=== PATIENT | female | born 1965 | race Caucasian/White ===

== ENCOUNTER 2016-09-21 11:55 | Emergency (ER) | payer BC ==
[2016-09-21] MEDS ORDERED: ONDANSETRON 4 MG/2 ML VIAL IVP STA (12:22)
[2016-09-21] MEDS ORDERED: SODIUM CHLORIDE 0.9% 1,000 ML IV STA ×2 (12:22→13:19)
[2016-09-21] MEDS ORDERED: HYDROmorphone 1 MG/ML 1 ML SYRINGE IVP STA (12:22)
--- NOTE | 2016-09-21 12:27 | ED ---
Abdominal Pain HPI - General Chief Complaint: Abdominal Pain Stated Complaint: Abd pain Time Seen by Provider: 09/21/16 12:08 Source: patient Mode of arrival: ambulatory Limitations: no limitations - History of Present Illness Initial Comments: 51-year-old female presents with abdominal pain. States has a history diverticulitis began on Thursday with lower abdominal pain constant vomiting K keep anything down. Tender in the right and left. No urinary frequency urgency dysuria no burning on the urine. Some loose stools. No fever or chills. History of lupus has been on prolonged steroids and is on hydrocortisone. History of ablation for SVT 2 postmenopausal. - Related Data Home Medications Medication Instructions Recorded Confirmed Fludrocortisone Acetate 0.1 mg PO DAILY 04/07/16 09/21/16 Hydrocortisone 7.5 mg PO DAILY 04/07/16 09/21/16 Hydroxychloroquine Sulfate 200 mg PO DAILY 04/07/16 09/21/16 [Plaquenil] Meloxicam [Mobic] 7.5 mg PO DAILY PRN 04/07/16 09/21/16 Montelukast Sodium [Singulair] 10 mg PO HS 04/07/16 09/21/16 Omeprazole 20 mg PO BID 04/07/16 09/21/16 traMADol HCL [Ultram] 50 mg PO DAILY PRN 04/07/16 09/21/16 Ergocalciferol [Vitamin D2] 50,000 unit PO MO 09/21/16 09/21/16 Levalbuterol Tartrate [Xopenex Hfa 2 puff INHALATION RT-BID 09/21/16 09/21/16 Inhaler] Nadolol [Corgard] 20 mg PO DAILY 09/21/16 09/21/16 Topiramate [Topamax] 100 mg PO BID 09/21/16 09/21/16 Previous Rx's Medication Instructions Recorded Ondansetron Odt [Zofran Odt] 8 mg PO Q8HR PRN #6 tab 09/21/16 Allergies Allergy/AdvReac Type Severity Reaction Status Date / Time Iodinated Contrast Media - Allergy Anaphylaxis Verified 09/21/16 12:42 Oral and [Iodinated Contrast Media - IV Dye] Penicillins Allergy Rash/Hives Verified 09/21/16 12:42 shellfish derived [Shellfish] Allergy Unknown Verified 09/21/16 12:42 codeine AdvReac Nausea & Verified 09/21/16 12:42 Vomiting Review of Systems ROS Statement: Those systems with pertinent positive or pertinent negative responses have been documented in the HPI. ROS Other: All systems not noted in ROS Statement are negative. Constitutional: Denies: fever, chills Eyes: Denies: eye discharge ENT: Denies: ear pain Respiratory: Denies: cough Cardiovascular: Denies: chest pain Gastrointestinal: Reports: abdominal pain, nausea, vomiting Genitourinary: Denies: urgency, dysuria, frequency Musculoskeletal: Denies: back pain Skin: Denies: rash Neurological: Denies: headache Hematological/Lymphatic: Denies: easy bleeding, easy bruising Past Medical History Past Medical History: COPD, Hyperlipidemia, Syncope Additional Past Medical History / Comment(s): svt syncopal episodes, adrenal insufficiency, LUPUS History of Any Multi-Drug Resistant Organisms: None Reported Past Surgical History: Hernia Repair Additional Past Surgical History / Comment(s): cardiac ablations x 2 vocal cord surg, bronch with lung washings x 2 Past Psychological History: No Psychological Hx Reported Smoking Status: Never smoker Past Alcohol Use History: Rare Past Drug Use History: None Reported General Exam Limitations: no limitations General appearance: alert, in no apparent distress Head exam: Present: atraumatic Eye exam: Present: PERRL, EOMI ENT exam: Present: normal oropharynx, mucous membranes moist, TM's normal bilaterally Respiratory exam: Present: normal lung sounds bilaterally Cardiovascular Exam: Present: regular rate, tachycardia, normal heart sounds GI/Abdominal exam: Present: soft, tenderness (Right and left lower quadrant greater than the left no guarding) Neurological exam: Present: alert, CN II-XII intact Psychiatric exam: Present: normal affect, normal mood Skin exam: Present: warm, dry Course Vital Signs 09/21/16 09/21/16 12:02 12:46 Temperature 97.7 F 99.1 F Pulse Rate 124 H 84 Respiratory 20 18 Rate Blood Pressure 174/89 101/64 O2 Sat by Pulse 96 97 Oximetry Medical Decision Making - Medical Decision Making Dehydration is corrected no further vomiting white count is normal this most likely is a ruptured ovarian cyst With the diarrhea however and her symptoms that has been classic of her previous diverticulitis we'll treat for that as well. She may go home on clear liquids Zofran Tylenol for pain - Lab Data Result diagrams: 09/21/16 12:20 09/21/16 12:20 Lab Results 09/21/16 09/21/16 09/21/16 Range/Units 12:20 12:20 13:37 WBC 4.1 (3.8-10.6) k/uL RBC 4.36 (3.80-5.40) m/uL Hgb 13.7 (11.4-16.0) gm/dL Hct 41.5 (34.0-46.0) % MCV 95.1 (80.0-100.0) fL MCH 31.5 (25.0-35.0) pg MCHC 33.1 (31.0-37.0) g/dL RDW 13.5 (11.5-15.5) % Plt Count 179 (150-450) k/uL Neutrophils % 73 % Lymphocytes % 20 % Monocytes % 5 % Eosinophils % 0 % Basophils % 0 % Neutrophils # 3.0 (1.3-7.7) k/uL Lymphocytes # 0.8 L (1.0-4.8) k/uL Monocytes # 0.2 (0-1.0) k/uL Eosinophils # 0.0 (0-0.7) k/uL Basophils # 0.0 (0-0.2) k/uL Sodium 139 (137-145) mmol/L Potassium 3.4 L (3.5-5.1) mmol/L Chloride 108 H (98-107) mmol/L Carbon Dioxide 16 L (22-30) mmol/L Anion Gap 15 mmol/L BUN 14 (7-17) mg/dL Creatinine 1.05 H (0.52-1.04) mg/dL Est GFR (MDRD) Af Amer >60 (>60 ml/min/1.73 sqM) Est GFR (MDRD) Non-Af 55 (>60 ml/min/1.73 sqM) Glucose 103 H (74-99) mg/dL Calcium 9.7 (8.4-10.2) mg/dL Total Bilirubin 0.7 (0.2-1.3) mg/dL AST 20 (14-36) U/L ALT 34 (9-52) U/L Alkaline Phosphatase 68 (38-126) U/L Total Protein 6.7 (6.3-8.2) g/dL Albumin 4.1 (3.5-5.0) g/dL Amylase <30 L (30-110) U/L Lipase 46 (23-300) U/L Urine Color Yellow Urine Appearance Cloudy H (Clear) Urine pH 6.0 (5.0-8.0) Ur Specific [place] 1.012 (1.001-1.035) Urine Protein Trace H (Negative) Urine Glucose (UA) Negative (Negative) Urine Ketones 1+ H (Negative) Urine Blood Negative (Negative) Urine Nitrate Negative (Negative) Urine Bilirubin Negative (Negative) Urine Urobilinogen <2.0 (<2.0) mg/dL Ur Leukocyte Esterase Moderate H (Negative) Urine RBC 2 (0-5) /hpf Urine WBC 8 H (0-5) /hpf Ur Squamous Epith Cells <1 (0-4) /hpf Urine Bacteria Rare H (None) /hpf Hyaline Casts 58 H (0-2) /lpf Urine Mucus Occasional H (None) /hpf - Radiology Data Radiology results: report reviewed CT shows some free fluid no appendix R no overt diverticulitis. Disposition Clinical Impression: Dehydration, Abdominal pain Narrative: Diverticulitis versus ruptured ovarian cyst will need additional follow-up with [facility] and her surgeon or GI doctor will follow-up with Dr. Leeann Shah Disposition: HOME SELF-CARE Condition: Good Instructions: Abdominal Pain (ED) Prescriptions: Ondansetron Odt [Zofran Odt] 8 mg PO Q8HR PRN #6 tab PRN Reason: Nausea Referrals: Leeann Shah MD [Primary Care Provider] - 1-2 days Time of Disposition: 15:13
[2016-09-21 12:40] LABS: Basophils % (A) 0 %; CH 32.3; CHCM 34.1; Eosinophils % (A) 0 %; HCT 41.5 % (34.0-46.0); HDW 2.47; HGB 13.7 gm/dL (11.4-16.0); Luc # (Auto) 0.06; Luc % (Auto) 2; Lymphocytes # (A) 0.8 k/uL (1.0-4.8); Lymphocytes % (A) 20 %; MCH 31.5 pg (25.0-35.0); MCHC 33.1 g/dL (31.0-37.0); MCV 95.1 fL (80.0-100.0); Mean Platelet Volume 7.8; Monocytes # (A) 0.2 k/uL (0-1.0); Monocytes % (A) 5 %; Neutrophils % (A) 73 %; RBC 4.36 m/uL (3.80-5.40); RDW 13.5 % (11.5-15.5); WBC 4.1 k/uL (3.8-10.6); WBC (Perox) 4.28
[2016-09-21 12:49] LABS: ALT 34 U/L (9-52); AST 20 U/L (14-36); Alkaline Phosphatase 68 U/L (38-126); Amylase <30 U/L (30-110); Anion Gap 15 mmol/L; Blood Urea Nitrogen 14 mg/dL (7-17); Calcium 9.7 mg/dL (8.4-10.2); Carbon Dioxide 16 mmol/L (22-30); Chloride 108 mmol/L (98-107); Glucose 103 mg/dL (74-99); Non-African American GFR(MDRD) 55 (>60 ml/min/1.73 sqM); Potassium 3.4 mmol/L (3.5-5.1); Sodium 139 mmol/L (137-145); Total Bilirubin 0.7 mg/dL (0.2-1.3); Total Protein 6.7 g/dL (6.3-8.2)
[2016-09-21] MEDS ORDERED: HYDROCORTISONE SUCCINATE 100 MG/2 ML VIAL IV STA (13:19)
[2016-09-21] MEDS ORDERED: PANTOPRAZOLE 40 MG/10 ML VIAL IVP STA (13:19)
--- NOTE | 2016-09-21 13:36 | CT ---
EXAMINATION TYPE: CT abdomen pelvis wo con DATE OF EXAM: 09/21/2016 1:06 PM COMPARISON: NONE HISTORY: mid pelvic pain and RLQ pain, with nausea and vomiting CT DLP: 339.9 mGycm Automated exposure control for dose reduction was used. TECHNIQUE: Helical acquisition of images was performed from the lung bases through the pelvis. FINDINGS: Lung bases are clear. There is no pleural effusion. Liver spleen pancreas appear normal. Bile ducts a re not dilated. Gallbladder appears normal. There is no adrenal mass. Kidneys have normal size and contour. There is no hydronephrosis. There is no retroperitoneal adenopathy. There is no ascites. Bladder distends smoothly. There is no sign of a pelvic mass. Appendix is not definitely seen. There is no sign of appendicitis. There are a few diver ticula in the descending colon. I see no intestinal wall thickening. There are no dilated loops. Ther e is no sign of a bowel obstruction. There is a small amount of free fluid in the pelvis. I see no pe lvic mass. The uterus is anteverted. Bony structures are intact. IMPRESSION: THERE IS MILD FREE FLUID IN THE PELVIS. NO PELVIC MASS SEEN. APPENDIX IS NOT SEEN. THERE IS NO SIGN O F APPENDICITIS. THERE IS SOME COLONIC DIVERTICULOSIS WITHOUT EVIDENCE OF DIVERTICULITIS.
[2016-09-21 13:47] LABS: Appearance,Urine Cloudy (Clear); Bacteria,Urine Rare /hpf; Bilirubin,Urine Negative (Negative); Glucose,Urine (UA) Negative (Negative); Ketones,Urine 1+ (Negative); Leukocyte Esterase,Urine Moderate (Negative); Mucus,Urine Occasional /hpf; Nitrite,Urine Negative (Negative); Particle Count 5355; Protein,Urine Trace (Negative); RBC,Urine 2 /hpf (0-5); Specific Gravity,Urine 1.012 (1.001-1.035); Squamous Epithelial Cell,Urine <1 /hpf (0-4); UA Billing (MACRO vs. MICRO) MICRO; Urobilinogen,Urine <2.0 mg/dL (<2.0); WBC,Urine 8 /hpf (0-5)
[2016-09-21] MEDS ORDERED: KETOROLAC 30 MG/ML 1 ML VIAL IVP STA (13:58)
--- NOTE | 2016-09-21 15:27 | ED ---
Medical Decision Making - Lab Data Result diagrams: 09/21/16 12:20 09/21/16 12:20 Lab Results 09/21/16 09/21/16 09/21/16 Range/Units 12:20 12:20 13:37 WBC 4.1 (3.8-10.6) k/uL RBC 4.36 (3.80-5.40) m/uL Hgb 13.7 (11.4-16.0) gm/dL Hct 41.5 (34.0-46.0) % MCV 95.1 (80.0-100.0) fL MCH 31.5 (25.0-35.0) pg MCHC 33.1 (31.0-37.0) g/dL RDW 13.5 (11.5-15.5) % Plt Count 179 (150-450) k/uL Neutrophils % 73 % Lymphocytes % 20 % Monocytes % 5 % Eosinophils % 0 % Basophils % 0 % Neutrophils # 3.0 (1.3-7.7) k/uL Lymphocytes # 0.8 L (1.0-4.8) k/uL Monocytes # 0.2 (0-1.0) k/uL Eosinophils # 0.0 (0-0.7) k/uL Basophils # 0.0 (0-0.2) k/uL Sodium 139 (137-145) mmol/L Potassium 3.4 L (3.5-5.1) mmol/L Chloride 108 H (98-107) mmol/L Carbon Dioxide 16 L (22-30) mmol/L Anion Gap 15 mmol/L BUN 14 (7-17) mg/dL Creatinine 1.05 H (0.52-1.04) mg/dL Est GFR (MDRD) Af Amer >60 (>60 ml/min/1.73 sqM) Est GFR (MDRD) Non-Af 55 (>60 ml/min/1.73 sqM) Glucose 103 H (74-99) mg/dL Calcium 9.7 (8.4-10.2) mg/dL Total Bilirubin 0.7 (0.2-1.3) mg/dL AST 20 (14-36) U/L ALT 34 (9-52) U/L Alkaline Phosphatase 68 (38-126) U/L Total Protein 6.7 (6.3-8.2) g/dL Albumin 4.1 (3.5-5.0) g/dL Amylase <30 L (30-110) U/L Lipase 46 (23-300) U/L Urine Color Yellow Urine Appearance Cloudy H (Clear) Urine pH 6.0 (5.0-8.0) Ur Specific [place] 1.012 (1.001-1.035) Urine Protein Trace H (Negative) Urine Glucose (UA) Negative (Negative) Urine Ketones 1+ H (Negative) Urine Blood Negative (Negative) Urine Nitrate Negative (Negative) Urine Bilirubin Negative (Negative) Urine Urobilinogen <2.0 (<2.0) mg/dL Ur Leukocyte Esterase Moderate H (Negative) Urine RBC 2 (0-5) /hpf Urine WBC 8 H (0-5) /hpf Ur Squamous Epith Cells <1 (0-4) /hpf Urine Bacteria Rare H (None) /hpf Hyaline Casts 58 H (0-2) /lpf Urine Mucus Occasional H (None) /hpf Disposition Clinical Impression: Dehydration, Abdominal pain Disposition: HOME SELF-CARE Condition: Good Instructions: Abdominal Pain (ED) Prescriptions: Ciprofloxacin HCl [Cipro] 500 mg PO Q12HR #20 tablet Ondansetron Odt [Zofran Odt] 8 mg PO Q8HR PRN #6 tab PRN Reason: Nausea metroNIDAZOLE [Flagyl] 500 mg PO TID #21 tab traMADol HCl [Ultram] 50 mg PO Q6H PRN #20 tab PRN Reason: Pain Referrals: Leeann Shah MD [Primary Care Provider] - 1-2 days
[2016-09-21 15:30] VITALS: BP 111/66; PULSE 89; RESP 20; TEMP 98.2
== END 2016-09-21 15:30 | disposition home or self-care (01) ==
LOC: EC 11:55
DX: R10.30 Lower abdominal pain, unspecified (principal); E86.0 Dehydration; R11.2 Nausea with vomiting, unspecified; Z87.19 Personal history of other diseases of the digestive system; M32.9 Systemic lupus erythematosus, unspecified; J44.9 Chronic obstructive pulmonary disease, unspecified; E78.5 Hyperlipidemia, unspecified; Z79.1 Long term (current) use of non-steroidal anti-inflammatories (NSAID); Z79.52 Long term (current) use of systemic steroids; Z79.899 Other long term (current) drug therapy; Z91.041 Radiographic dye allergy status; Z88.0 Allergy status to penicillin
CPT/HCPCS: 36415; 80053; 82150; 83690; 85025; 81001; 87040; 87086; 74176; 99284; 96374; 96375 ×4; 96361 ×3; J1720; J2405; J1885; J1170; C9113

== ENCOUNTER → 2016-09-26 | Outpatient (CLI) | payer BC ==
--- NOTE | 2016-09-27 10:36 | NM ---
EXAMINATION TYPE: NM hepatobiliary w CCK DATE OF EXAM: 09/26/2016 5:33 PM COMPARISON: NONE INDICATION: Cholecystitis TECHNIQUE: After the intravenous administration of 4.92 mCi Tc 99m Mebrofenin hepatobiliary scintigra phy is performed. Images were obtained immediately post injection. FINDINGS: There is prompt uptake and excretion of radiotracer by the liver. Extrahepatic ducts are identified at 5 minutes. The gallbladder is visualized within 56 minutes. Small bowel activity is noted within 9 minutes. At one hour CCK was administered, patient was injected with 1.38 mcg of Kinevac, and gallbladder ejec tion fraction is calculated at 58 %, in the normal range. (Normal >35% and <80%.). IMPRESSION: Normal hepatobiliary scan.
== END | disposition home or self-care (01) ==
LOC: RADNMMAIN 14:57
PROVIDERS: ATTEND Surgery
DX: K81.9 Cholecystitis, unspecified (principal)
CPT/HCPCS: 78227; A9537; J2805

== ENCOUNTER 2016-09-30 10:29 | Day surgery (SDC) | payer BC ==
[2016-09-29 08:38] VITALS: BMI 26.2
[~2016-09-30 10:29] MED LIST: LACTATED RINGERS 1,000 ML IV SCH
[2016-09-30 10:52] VITALS: RESP 16; TEMP 98.2
[2016-09-30] MEDS ORDERED: LIDOCAINE 1% 20 ML VIAL (10MG/ML) FOR IV START INTRADERMA ONE (11:06)
[2016-09-30] MEDS ORDERED: PROPOFOL 10 MG/ML 20 ML VIAL IV ONE (11:46)
[2016-09-30] MEDS ORDERED: LIDOCAINE 1% INJ 10MG/ML (20 ML MDV) ONE (11:46)
[2016-09-30] MEDS ORDERED: GLYCOPYRROLATE 0.2 MG/ML 2 ML VIAL ONE (11:46)
--- NOTE | 2016-09-30 11:50 | P.GSHP ---
History of Present Illness H&P Date: 09/30/16 Chief Complaint: GERD, history of diverticulitis This is a 51-year-old female who presents today for EGD colonoscopy. Patient's had complaints of GERD and diverticulitis. Patient states that she does not feel well. She has complaints of pain left side of her abdomen is also epigastric pain. Past Medical History Past Medical History: COPD, Hyperlipidemia, Syncope Additional Past Medical History / Comment(s): svt syncopal episodes, adrenal insufficiency, LUPUS. POSSIBLE GALLBLADDER ISSUES. CHRONIC NAUSEA History of Any Multi-Drug Resistant Organisms: None Reported Past Surgical History: Hernia Repair Additional Past Surgical History / Comment(s): cardiac ablations x 2 vocal cord surg, bronch with lung washings x 2 Past Anesthesia/Blood Transfusion Reactions: Postoperative Nausea & Vomiting ( PONV) Additional Past Anesthesia/Blood Transfusion Reaction / Comment(s): WAKES UP CONFUSED Past Psychological History: No Psychological Hx Reported Smoking Status: Never smoker Past Alcohol Use History: Rare Past Drug Use History: None Reported - Past Family History Mother Family Medical History: Cancer Father Family Medical History: Cancer Brother(s) Family Medical History: Cancer Medications and Allergies Home Medications Medication Instructions Recorded Confirmed Type Fludrocortisone Acetate 0.1 mg PO DAILY 04/07/16 09/30/16 History Hydrocortisone 7.5 mg PO DAILY 04/07/16 09/30/16 History Hydroxychloroquine Sulfate 200 mg PO DAILY 04/07/16 09/30/16 History [Plaquenil] Meloxicam [Mobic] 7.5 mg PO DAILY PRN 04/07/16 09/30/16 History Montelukast Sodium [Singulair] 10 mg PO HS 04/07/16 09/30/16 History Omeprazole 20 mg PO BID 04/07/16 09/30/16 History traMADol HCL [Ultram] 50 mg PO DAILY PRN 04/07/16 09/30/16 History Ergocalciferol [Vitamin D2] 50,000 unit PO MO 09/21/16 09/30/16 History Levalbuterol Tartrate [Xopenex Hfa 2 puff INHALATION RT-BID 09/21/16 09/30/16 History Inhaler] Nadolol [Corgard] 20 mg PO DAILY 09/21/16 09/30/16 History Topiramate [Topamax] 100 mg PO BID 09/21/16 09/30/16 History Allergies Allergy/AdvReac Type Severity Reaction Status Date / Time Iodinated Contrast Media - Allergy Anaphylaxis Verified 09/30/16 10:52 Oral and [Iodinated Contrast Media - IV Dye] Penicillins Allergy Rash/Hives Verified 09/30/16 10:52 shellfish derived [Shellfish] Allergy Unknown Verified 09/30/16 10:52 codeine AdvReac Nausea & Verified 09/30/16 10:52 Vomiting Surgical - Exam Vital Signs Temp Pulse Resp BP Pulse Ox 98.2 F 93 16 102/61 98 09/30/16 10:47 09/30/16 10:47 09/30/16 10:47 09/30/16 10:47 09/30/16 10:47 - General well developed, no distress - Eyes PERRL - ENT normal pinna - Neck no masses - Respiratory normal expansion - Cardiovascular Rhythm: regular - Abdomen Mild tenderness throughout abdomen. There is no rebound or guarding. Abdomen: soft Assessment and Plan Plan: GERD. We'll perform EGD. Abdominal pain, history of diverticulitis perform EGD colonoscopy.
--- NOTE | 2016-09-30 12:13 | P.OP ---
Date of Procedure: 09/30/16 Preoperative Diagnosis: Abdominal pain GERD Diverticulosis Postoperative Diagnosis: Antral gastritis Small hiatal hernia Mild esophagitis Diverticulosis Procedure(s) Performed: EGD Colonoscopy Anesthesia: MAC Surgeon: Abdias Mei Pathology: other (Antrum, esophagus) Disposition: PACU Description of Procedure: Patient's placed on the endoscopy table in the lateral position. She received IV sedation. The gastroscope some placed oropharynx passed into the esophagus and into the stomach. Scope was then placed through the pylorus and the first and second portion of the duodenum was examined. There is no evidence of any inflammation of duodenum. Scope was then brought back the antrum and there was inflammation seen. Patient had gastritis in this area is biopsied. Scope was unretroflexed and the remainder of the stomach appeared normal. There was a small hiatal hernia. The distal esophagus. Inflamed and a biopsies performed. The proximal esophagus. Normal. Scope was withdrawn for patient. Next digital rectal exam was performed which revealed no abnormalities. Flexible colonoscope was then placed patient anus and passed throughout the entire colon. The ileocecal valve was visualized. The cecum, ascending, transverse colon appeared normal. In the descending and sigmoid colon there was mild diverticular changes. There is no evidence of diverticulitis. Scope was then brought back the rectum and this appeared normal. Scope was withdrawn for patient.
[2016-09-30 12:36] VITALS: BP 105/68; PULSE 86
== END 2016-09-30 13:30 | disposition home or self-care (01) ==
LOC: ORWHC2ENDO 10:29
PROVIDERS: ATTEND Surgery
DX: K29.50 Unspecified chronic gastritis without bleeding (principal); K20.9 Esophagitis, unspecified; K44.9 Diaphragmatic hernia without obstruction or gangrene; K57.90 Diverticulosis of intestine, part unspecified, without perforation or abscess without bleeding; J44.9 Chronic obstructive pulmonary disease, unspecified; E78.5 Hyperlipidemia, unspecified; I49.9 Cardiac arrhythmia, unspecified; M32.9 Systemic lupus erythematosus, unspecified; Z79.52 Long term (current) use of systemic steroids; Z79.899 Other long term (current) drug therapy; Z91.041 Radiographic dye allergy status; Z88.0 Allergy status to penicillin; Z91.013 Allergy to seafood
CPT/HCPCS: 81025; 88305; 88342; 45378; 43239; J2001; J2704; 99153

== ENCOUNTER 2017-07-05 03:04 | Observation (INO) | payer BC ==
[2017-07-05] MEDS ORDERED: SODIUM CHLORIDE 0.9% 1,000 ML IV STA (03:28)
[2017-07-05] MEDS ORDERED: ONDANSETRON 4 MG/2 ML VIAL IVP STA (03:28)
[2017-07-05] MEDS ORDERED: KETOROLAC 30 MG/ML 1 ML VIAL IVP STA (03:28)
--- NOTE | 2017-07-05 03:29 | ED ---
General Adult HPI - General Source: patient, RN notes reviewed Mode of arrival: ambulatory Limitations: no limitations <Angela Velazco - Last Filed: 07/05/17 03:55> <Luis Wills - Last Filed: 07/05/17 05:11> - General Chief complaint: Back Pain/Injury Stated complaint: Back Pain/Abdominal Pain Time Seen by Provider: 07/05/17 03:18 - History of Present Illness Initial comments: 52-year-old female presents emergency department with a chief complaint of left- sided flank pain. Patient states she just felt off. She's had some difficulty urinating. She's had some nausea and some fevers. Patient states that then today she developed this left-sided back pain that she's never had before. Patient denies any blood in the urine. Patient is to history of diverticulitis but states this feels very different. She does admit to history of adrenal insufficiency. Patient was concerned due to her symptoms so she thought that she should be evaluated.Patient denies any recent fever, chills, shortness of breath, chest pain, vomiting, numbness or tingling, dysuria or hematuria, constipation or diarrhea, headaches or visual changes, or any other current symptoms. (Angela Velazco) - Related Data Home Medications Medication Instructions Recorded Confirmed Fludrocortisone Acetate 0.1 mg PO DAILY 04/07/16 09/30/16 Hydrocortisone 7.5 mg PO DAILY 04/07/16 09/30/16 Hydroxychloroquine Sulfate 200 mg PO DAILY 04/07/16 09/30/16 [Plaquenil] Meloxicam [Mobic] 7.5 mg PO DAILY PRN 04/07/16 09/30/16 Montelukast Sodium [Singulair] 10 mg PO HS 04/07/16 09/30/16 Omeprazole 20 mg PO BID 04/07/16 09/30/16 traMADol HCL [Ultram] 50 mg PO DAILY PRN 04/07/16 09/30/16 Ergocalciferol [Vitamin D2] 50,000 unit PO MO 09/21/16 09/30/16 Levalbuterol Tartrate [Xopenex Hfa 2 puff INHALATION RT-BID 09/21/16 09/30/16 Inhaler] Nadolol [Corgard] 20 mg PO DAILY 09/21/16 09/30/16 Topiramate [Topamax] 100 mg PO BID 09/21/16 09/30/16 Previous Rx's Medication Instructions Recorded Ciprofloxacin HCl [Cipro] 500 mg PO Q12HR #20 tablet 09/21/16 Ondansetron Odt [Zofran Odt] 8 mg PO Q8HR PRN #6 tab 09/21/16 metroNIDAZOLE [Flagyl] 500 mg PO TID #21 tab 09/21/16 traMADol HCl [Ultram] 50 mg PO Q6H PRN #20 tab 09/21/16 Omeprazole 40 mg PO DAILY #90 capsule. 09/30/16 Allergies Allergy/AdvReac Type Severity Reaction Status Date / Time Iodinated Contrast- Oral and Allergy Anaphylaxis Verified 07/05/17 03:16 IV Dye [Iodinated Contrast Media - IV Dye] Penicillins Allergy Rash/Hives Verified 07/05/17 03:16 shellfish derived [Shellfish] Allergy Unknown Verified 07/05/17 03:16 codeine AdvReac Nausea & Verified 07/05/17 03:16 Vomiting Review of Systems ROS Other: All systems not noted in ROS Statement are negative. <Angela Velazco - Last Filed: 07/05/17 03:55> ROS Other: All systems not noted in ROS Statement are negative. <Luis Wills - Last Filed: 07/05/17 05:11> ROS Statement: Those systems with pertinent positive or pertinent negative responses have been documented in the HPI. Past Medical History Past Medical History: COPD, Hyperlipidemia, Syncope Additional Past Medical History / Comment(s): svt syncopal episodes, adrenal insufficiency, LUPUS. POSSIBLE GALLBLADDER ISSUES. CHRONIC NAUSEA History of Any Multi-Drug Resistant Organisms: None Reported Past Surgical History: Hernia Repair Additional Past Surgical History / Comment(s): cardiac ablations x 2 vocal cord surg, bronch with lung washings x 2 Past Anesthesia/Blood Transfusion Reactions: Postoperative Nausea & Vomiting ( PONV) Additional Past Anesthesia/Blood Transfusion Reaction / Comment(s): WAKES UP CONFUSED Past Psychological History: No Psychological Hx Reported Smoking Status: Never smoker Past Alcohol Use History: Rare Past Drug Use History: None Reported - Past Family History Mother Family Medical History: Cancer Father Family Medical History: Cancer Brother(s) Family Medical History: Cancer <Angela Velazco - Last Filed: 07/05/17 03:55> General Exam Limitations: no limitations <Angela Velazco - Last Filed: 07/05/17 03:55> <Luis Wills - Last Filed: 07/05/17 05:11> - General Exam Comments Initial Comments: General: The patient is awake and alert, in no distress, and does not appear acutely ill. Eye: Pupils are equal, round and reactive to light, extra-ocular movements are intact; there is normal conjunctiva bilaterally. No signs of icterus. Ears, nose, mouth and throat: There are moist mucous membranes and no oral lesions. Neck: The neck is supple, there is no tenderness. Cardiovascular: There is a regular rate and rhythm. No murmur, rub or gallop is appreciated. Respiratory: Lungs are clear to auscultation, respirations are non-labored, breath sounds are equal. No wheezes, stridor, rales, or rhonchi. Gastrointestinal: Soft, non-distended, non-tender abdomen without masses or organomegaly noted. There is no rebound or guarding present. Left sided CVA tenderness. Bowel sounds are unremarkable. Back: There is no tenderness to palpation in the midline. There is no obvious deformity. No rashes noted. Musculoskeletal: Normal ROM, no tenderness, There is no pedal edema. There is no calf tenderness or swelling. Sensation intact. Pulses equal bilaterally 2+. Neurological: CN II-XII intact, There are no obvious motor or sensory deficits. Coordination appears grossly intact. Speech is normal. Skin: Skin is warm and dry and no rashes or lesions are noted. Psychiatric: Cooperative, appropriate mood & affect, normal judgment. (Angela Velazco) Course <Angela Velazco - Last Filed: 07/05/17 03:55> <Luis Wills - Last Filed: 07/05/17 05:11> Vital Signs 07/05/17 07/05/17 03:13 04:41 Temperature 97.5 F L 98.6 F Pulse Rate 73 66 Respiratory 16 18 Rate Blood Pressure 100/66 108/61 O2 Sat by Pulse 100 99 Oximetry - Reevaluation(s) Reevaluation #1: 07/05/17 03:55 THis case will be signed out to Dr. Wills. (Angela Velazco) Medical Decision Making <Angela Velazco - Last Filed: 07/05/17 03:55> - Lab Data Result diagrams: 07/05/17 03:54 07/05/17 03:54 - Radiology Data Radiology results: report reviewed (Computed tomography scan abdomen pelvis shows no acute findings.) <Luis Wills - Last Filed: 07/05/17 05:11> - Medical Decision Making 52-year-old female presents for left-sided flank pain. (Angela Velazco) Patient reexamined and resting comfortably in bed. Abdomen soft and nontender. Mild tenderness left lower lumbar lateral region. Patient states she's been vomiting for 5 times daily for the last couple of days and already used her Cortef injection. Patient and family are updated on results and plan. Secondary to nausea vomiting with adrenal insufficiency patient will be admitted. Case discussed with practitioner Elsi, who will admit for Dr. Foster , covering for Dr. Leeann Ruiz. (Luis Wills) - Lab Data Lab Results 07/05/17 07/05/17 07/05/17 Range/Units 03:54 03:54 03:54 WBC 3.7 L (3.8-10.6) k/uL RBC 3.97 (3.80-5.40) m/uL Hgb 12.2 (11.4-16.0) gm/dL Hct 37.4 (34.0-46.0) % MCV 94.2 (80.0-100.0) fL MCH 30.7 (25.0-35.0) pg MCHC 32.6 (31.0-37.0) g/dL RDW 14.0 (11.5-15.5) % Plt Count 186 (150-450) k/uL Neutrophils % 41 % Lymphocytes % 46 % Monocytes % 8 % Eosinophils % 3 % Basophils % 1 % Neutrophils # 1.5 (1.3-7.7) k/uL Lymphocytes # 1.7 (1.0-4.8) k/uL Monocytes # 0.3 (0-1.0) k/uL Eosinophils # 0.1 (0-0.7) k/uL Basophils # 0.0 (0-0.2) k/uL PT (9.0-12.0) sec INR (<1.2) APTT (22.0-30.0) sec Sodium 138 (137-145) mmol/L Potassium 4.0 (3.5-5.1) mmol/L Chloride 109 H (98-107) mmol/L Carbon Dioxide 17 L (22-30) mmol/L Anion Gap 12 mmol/L BUN 5 L (7-17) mg/dL Creatinine 0.70 (0.52-1.04) mg/dL Est GFR (MDRD) Af Amer >60 (>60 ml/min/1.73 sqM) Est GFR (MDRD) Non-Af >60 (>60 ml/min/1.73 sqM) Glucose 85 (74-99) mg/dL Plasma Lactic Acid Saúl 0.9 (0.7-2.0) mmol/L Calcium 9.8 (8.4-10.2) mg/dL Total Bilirubin 0.3 (0.2-1.3) mg/dL AST 18 (14-36) U/L ALT 28 (9-52) U/L Alkaline Phosphatase 56 (38-126) U/L Total Protein 6.3 (6.3-8.2) g/dL Albumin 3.8 (3.5-5.0) g/dL Amylase 37 (30-110) U/L Lipase 107 (23-300) U/L Urine Color Urine Appearance (Clear) Urine pH (5.0-8.0) Ur Specific [place] (1.001-1.035) Urine Protein (Negative) Urine Glucose (UA) (Negative) Urine Ketones (Negative) Urine Blood (Negative) Urine Nitrite (Negative) Urine Bilirubin (Negative) Urine Urobilinogen (<2.0) mg/dL Ur Leukocyte Esterase (Negative) Urine RBC (0-5) /hpf Urine WBC (0-5) /hpf Ur Squamous Epith Cells (0-4) /hpf Urine Mucus (None) /hpf 07/05/17 07/05/17 Range/Units 03:54 03:54 WBC (3.8-10.6) k/uL RBC (3.80-5.40) m/uL Hgb (11.4-16.0) gm/dL Hct (34.0-46.0) % MCV (80.0-100.0) fL MCH (25.0-35.0) pg MCHC (31.0-37.0) g/dL RDW (11.5-15.5) % Plt Count (150-450) k/uL Neutrophils % % Lymphocytes % % Monocytes % % Eosinophils % % Basophils % % Neutrophils # (1.3-7.7) k/uL Lymphocytes # (1.0-4.8) k/uL Monocytes # (0-1.0) k/uL Eosinophils # (0-0.7) k/uL Basophils # (0-0.2) k/uL PT 10.5 (9.0-12.0) sec INR 1.0 (<1.2) APTT 23.2 (22.0-30.0) sec Sodium (137-145) mmol/L Potassium (3.5-5.1) mmol/L Chloride (98-107) mmol/L Carbon Dioxide (22-30) mmol/L Anion Gap mmol/L BUN (7-17) mg/dL Creatinine (0.52-1.04) mg/dL Est GFR (MDRD) Af Amer (>60 ml/min/1.73 sqM) Est GFR (MDRD) Non-Af (>60 ml/min/1.73 sqM) Glucose (74-99) mg/dL Plasma Lactic Acid Saúl (0.7-2.0) mmol/L Calcium (8.4-10.2) mg/dL Total Bilirubin (0.2-1.3) mg/dL AST (14-36) U/L ALT (9-52) U/L Alkaline Phosphatase (38-126) U/L Total Protein (6.3-8.2) g/dL Albumin (3.5-5.0) g/dL Amylase (30-110) U/L Lipase (23-300) U/L Urine Color Light Yellow Urine Appearance Clear (Clear) Urine pH 7.0 (5.0-8.0) Ur Specific [place] 1.005 (1.001-1.035) Urine Protein Negative (Negative) Urine Glucose (UA) Negative (Negative) Urine Ketones Negative (Negative) Urine Blood Negative (Negative) Urine Nitrite Negative (Negative) Urine Bilirubin Negative (Negative) Urine Urobilinogen <2.0 (<2.0) mg/dL Ur Leukocyte Esterase Trace H (Negative) Urine RBC 1 (0-5) /hpf Urine WBC 2 (0-5) /hpf Ur Squamous Epith Cells <1 (0-4) /hpf Urine Mucus Rare H (None) /hpf Disposition <Angela Velazco - Last Filed: 07/05/17 03:55> Decision Time: 05:11 <Luis Wills - Last Filed: 07/05/17 05:11> Clinical Impression: Nausea and vomiting, Adrenal insufficiency Disposition: ADMITTED IP TO THIS HOSP Referrals: Leeann Shah MD [Primary Care Provider] - 1-2 days
--- NOTE | 2017-07-05 04:10 | CT ---
EXAM: CT Abdomen and Pelvis Without Intravenous Contrast CLINICAL HISTORY: Reason: Pain TECHNIQUE: Axial computed tomography images of the abdomen and pelvis without intravenous contrast. DLP is 301.60 mGy-cm. This CT exam was performed using one or more of the following dose reduction techniques: automated exposure control, adjustment of the mA and/or kV according to patient size, and/or use of iterative reconstruction technique. COMPARISON: 09/21/16 FINDINGS: Liver, gallbladder, spleen, pancreas, and both adrenal glands are normal. Both kidneys are unremarkable without evidence of hydronephrosis or renal calculus. The urinary bladder is normal. No free fluid or free air. Stool throughout the colon. Appendix is not seen; however, there is no evidence of right lower quadrant inflammation to suggest appendicitis. Scattered diverticula noted in the descending and sigmoid colon without evidence of active inflammation. No evidence of small bowel dilatation. Osseous structures are intact. IMPRESSION: No acute intra-abdominal or intrapelvic process. No signs of appendicitis. Colonic diverticulosis redemonstrated without active inflammation.
[2017-07-05 04:21] LABS: Basophils % (A) 1 %; Eosinophils # (A) 0.1 k/uL (0-0.7); Eosinophils % (A) 3 %; HCT 37.4 % (34.0-46.0); HDW 2.31; HGB 12.2 gm/dL (11.4-16.0); Luc # (Auto) 0.07; Luc % (Auto) 2; Lymphocytes # (A) 1.7 k/uL (1.0-4.8); Lymphocytes % (A) 46 %; MCH 30.7 pg (25.0-35.0); MCHC 32.6 g/dL (31.0-37.0); MCV 94.2 fL (80.0-100.0); Mean Platelet Volume 7.6; Monocytes # (A) 0.3 k/uL (0-1.0); Monocytes % (A) 8 %; Neutrophils # (A) 1.5 k/uL (1.3-7.7); Neutrophils % (A) 41 %; RBC 3.97 m/uL (3.80-5.40); WBC 3.7 k/uL (3.8-10.6); WBC (Perox) 3.79
[2017-07-05 04:26] LABS: Appearance,Urine Clear (Clear); Bilirubin,Urine Negative (Negative); Glucose,Urine (UA) Negative (Negative); Ketones,Urine Negative (Negative); Leukocyte Esterase,Urine Trace (Negative); Mucus,Urine Rare /hpf; Nitrite,Urine Negative (Negative); Particle Count 704; Protein,Urine Negative (Negative); RBC,Urine 1 /hpf (0-5); Specific Gravity,Urine 1.005 (1.001-1.035); Squamous Epithelial Cell,Urine <1 /hpf (0-4); UA Billing (MACRO vs. MICRO) MICRO; Urobilinogen,Urine <2.0 mg/dL (<2.0); WBC,Urine 2 /hpf (0-5)
[2017-07-05 04:28] LABS: ALT 28 U/L (9-52); AST 18 U/L (14-36); Alkaline Phosphatase 56 U/L (38-126); Amylase 37 U/L (30-110); Blood Urea Nitrogen 5 mg/dL (7-17); Calcium 9.8 mg/dL (8.4-10.2); Carbon Dioxide 17 mmol/L (22-30); Glucose 85 mg/dL (74-99); Non-African American GFR(MDRD) >60 (>60 ml/min/1.73 sqM); Sodium 138 mmol/L (137-145); Total Bilirubin 0.3 mg/dL (0.2-1.3); Total Protein 6.3 g/dL (6.3-8.2)
[2017-07-05 04:29] LABS: Anion Gap 12 mmol/L; Chloride 109 mmol/L (98-107)
[2017-07-05 04:32] LABS: Partial Thromboplastin Time 23.2 sec (22.0-30.0); Prothrombin Time 10.5 sec (9.0-12.0)
[2017-07-05] MEDS ORDERED: NALOXONE 0.4 MG/ML 1 ML VIAL IV PRN (05:12)
[2017-07-05] MEDS ORDERED: ONDANSETRON 4 MG/2 ML VIAL IVP PRN (05:12)
[2017-07-05] MEDS ORDERED: SODIUM CHLORIDE 0.9% 1,000 ML IV SCH (05:15)
[2017-07-05 06:18] VITALS: RESP 16
[2017-07-05 07:31] VITALS: BP 93/58; PULSE 63; TEMP 98
[2017-07-05 07:36] VITALS: BMI 25.7
[2017-07-05] MEDS ORDERED: HYDROCORTISONE SUCCINATE 100 MG/2 ML VIAL IV SCH (08:00)
[2017-07-05] MEDS ORDERED: PANTOPRAZOLE 40 MG/10 ML VIAL IV SCH (09:00)
--- NOTE | 2017-07-05 15:19 | P.DS ---
Providers Date of admission: 07/05/17 05:14 Attending physician: Mojgan Foster Primary care physician: Leeann Shah [facility] Course: Please refer to my HPI Plan - Discharge Summary New Discharge Prescriptions: New Hydrocortisone [Cortef] 10 mg PO DAILY #30 tablet Continue Montelukast Sodium [Singulair] 10 mg PO HS Hydroxychloroquine Sulfate [Plaquenil] 200 mg PO DAILY Omeprazole 20 mg PO BID PRN PRN Reason: Acid reflux/Heartburn Meloxicam [Mobic] 7.5 mg PO DAILY PRN PRN Reason: Pain Topiramate [Topamax] 100 mg PO BID Nadolol [Corgard] 20 mg PO DAILY Digoxin [Digitek] 125 mcg PO DAILY Fludrocortisone Acetate 0.1 mg PO DAILY #30 Discharge Medication List Hydroxychloroquine Sulfate [Plaquenil] 200 mg PO DAILY 04/07/16 [History] Meloxicam [Mobic] 7.5 mg PO DAILY PRN 04/07/16 [History] Montelukast Sodium [Singulair] 10 mg PO HS 04/07/16 [History] Omeprazole 20 mg PO BID PRN 04/07/16 [History] Nadolol [Corgard] 20 mg PO DAILY 09/21/16 [History] Topiramate [Topamax] 100 mg PO BID 09/21/16 [History] Digoxin [Digitek] 125 mcg PO DAILY 07/05/17 [History] Fludrocortisone Acetate 0.1 mg PO DAILY #30 07/05/17 [Rx] Hydrocortisone [Cortef] 10 mg PO DAILY #30 tablet 07/05/17 [Rx] Follow up Appointment(s)/Referral(s): Leeann Shah MD [Primary Care Provider] - 3 Days Patient Instructions/Handouts: Acute Nausea and Vomiting (DC) Discharge Disposition: HOME SELF-CARE
--- NOTE | 2017-07-05 15:19 | P.HPIM ---
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 Had nausea vomiting improved will advance her diet if she is able to tolerate patient will be discharged today. Apparently patient had abdominal pain and flank pain which she still complains of 5-6/10 in severity CAT scan of the abdomen is essentially within normal limits patient was suspected to have kidney stones although these are not evident on the CAT scan of the chest. No diverticulosis or diverticular disease in the CAT scan. Patient denied any fever chills dysuria her nausea vomiting resolved. Review of Systems REVIEW OF SYSTEMS: CONSTITUTIONAL: No fever, no malaise, no fatigue. HEENT: No recent visual problems or hearing problems. Denied any sore throat. CARDIOVASCULAR: No chest pain, orthopnea, PND, no palpitations, no syncope. PULMONARY: No shortness of breath, no cough, no hemoptysis. GASTROINTESTINAL: As mentioned in HPI NEUROLOGICAL: No headaches, no weakness, no numbness. HEMATOLOGICAL: Denies any bleeding or petechiae. GENITOURINARY: Denies any burning micturition, frequency, or urgency. MUSCULOSKELETAL/RHEUMATOLOGICAL: Denies any joint pain, swelling, or any muscle pain. ENDOCRINE: Denies any polyuria or polydipsia. The rest of the 14-point review of systems is negative. Past Medical History Past Medical History: COPD, Hyperlipidemia, Syncope Additional Past Medical History / Comment(s): svt syncopal episodes, adrenal insufficiency, LUPUS, chronic nausea History of Any Multi-Drug Resistant Organisms: None Reported Past Surgical History: Hernia Repair Additional Past Surgical History / Comment(s): cardiac ablations x 2 vocal cord surg, bronch with lung washings x 2 Past Anesthesia/Blood Transfusion Reactions: Postoperative Nausea & Vomiting ( PONV) Additional Past Anesthesia/Blood Transfusion Reaction / Comment(s): WAKES UP CONFUSED Past Psychological History: No Psychological Hx Reported Smoking Status: Never smoker Past Alcohol Use History: Rare Past Drug Use History: None Reported - Past Family History Mother Family Medical History: Cancer Father Family Medical History: Cancer Brother(s) Family Medical History: Cancer Medications and Allergies Home Medications Medication Instructions Recorded Confirmed Type Hydroxychloroquine Sulfate 200 mg PO DAILY 04/07/16 07/05/17 History [Plaquenil] Meloxicam [Mobic] 7.5 mg PO DAILY PRN 04/07/16 07/05/17 History Montelukast Sodium [Singulair] 10 mg PO HS 04/07/16 07/05/17 History Omeprazole 20 mg PO BID PRN 04/07/16 07/05/17 History Nadolol [Corgard] 20 mg PO DAILY 09/21/16 07/05/17 History Topiramate [Topamax] 100 mg PO BID 09/21/16 07/05/17 History Digoxin [Digitek] 125 mcg PO DAILY 07/05/17 07/05/17 History Fludrocortisone Acetate 0.1 mg PO DAILY #30 07/05/17 07/05/17 Rx Hydrocortisone [Cortef] 10 mg PO DAILY #30 tablet 07/05/17 Rx Allergies Allergy/AdvReac Type Severity Reaction Status Date / Time Iodinated Contrast- Oral and Allergy Anaphylaxis Verified 07/05/17 08:33 IV Dye [Iodinated Contrast Media - IV Dye] Penicillins Allergy Rash/Hives Verified 07/05/17 08:33 shellfish derived [Shellfish] Allergy Unknown Verified 07/05/17 08:33 codeine AdvReac Nausea & Verified 07/05/17 08:33 Vomiting Physical Exam Vitals: Vital Signs Temp Pulse Pulse Resp BP BP Pulse Ox 07/05/17 07:00 98 F 63 16 93/58 99 07/05/17 06:17 97.6 F 56 L 16 89/49 97 07/05/17 04:41 98.6 F 66 18 108/61 99 07/05/17 03:13 97.5 F L 73 16 100/66 100 Intake and Output 07/05/17 07/05/17 07/05/17 06:59 14:59 22:59 Other: Weight 65.771 kg PHYSICAL EXAMINATION: GENERAL: The patient is alert and oriented x3, not in any acute distress. Well developed, well nourished. HEENT: Pupils are round and equally reacting to light. EOMI. No scleral icterus. No conjunctival pallor. Normocephalic, atraumatic. No pharyngeal erythema. No thyromegaly. CARDIOVASCULAR: S1 and S2 present. No murmurs, rubs, or gallops. PULMONARY: Chest is clear to auscultation, no wheezing or crackles. ABDOMEN: Soft, nontender, nondistended, normoactive bowel sounds. No palpable organomegaly. MUSCULOSKELETAL: No joint swelling or deformity. EXTREMITIES: No cyanosis, clubbing, or pedal edema. NEUROLOGICAL: Gross neurological examination did not reveal any focal deficits. SKIN: No rashes. Results CBC & Chem 7: 07/05/17 03:54 07/05/17 03:54 Labs: Abnormal Lab Results - Last 24 Hours (Table) 07/05/17 07/05/17 07/05/17 Range/Units 03:54 03:54 03:54 WBC 3.7 L (3.8-10.6) k/uL Chloride 109 H (98-107) mmol/L Carbon Dioxide 17 L (22-30) mmol/L BUN 5 L (7-17) mg/dL Ur Leukocyte Esterase Trace H (Negative) Urine Mucus Rare H (None) /hpf Microbiology - Last 24 Hours (Table) 07/05/17 03:54 Urine Culture - Preliminary Urine,Voided Thrombosis Risk Factor Assmnt - Choose All That Apply Any of the Below Risk Factors Present?: Yes Each Factor Represents 1 point: Age 41-60 years, Obesity (BMI >25) Thrombosis Risk Factor Assessment Total Risk Factor Score: 2 Thrombosis Risk Factor Assessment Level: Low Risk Assessment and Plan Plan: #1 nausea vomiting: Secondary to viral gastroenteritis which is with improved symptoms. We will advance the diet today if patient is able to tolerate patient will be discharged today. #2 atrial insufficiency: Patient ran out of her medications, prescriptions of which will be provided. #3 hyperlipidemia next and #4 COPD without any acute exacerbation #5 history of lupus no issues at this time.
== END 2017-07-05 13:55 | disposition home or self-care (01) ==
LOC: EC 03:04 → 5MS5E 05:14
PROVIDERS: ADMIT Hospitalist; ATTEND Hospitalist
DX: A08.4 Viral intestinal infection, unspecified (principal); E27.40 Unspecified adrenocortical insufficiency; J44.9 Chronic obstructive pulmonary disease, unspecified; E78.5 Hyperlipidemia, unspecified; M32.9 Systemic lupus erythematosus, unspecified; K57.30 Diverticulosis of large intestine without perforation or abscess without bleeding; E66.9 Obesity, unspecified; Z68.25 Body mass index [BMI] 25.0-25.9, adult; Z79.899 Other long term (current) drug therapy; Z91.013 Allergy to seafood; Z88.0 Allergy status to penicillin; Z91.041 Radiographic dye allergy status; Z88.5 Allergy status to narcotic agent
CPT/HCPCS: 96375 ×2; 96361; 96374; 99285; 36415; 80053; 82150; 83605; 83690; 85025; 85610; 85730; 81001; 87040; 87086; 74176; G0378; J1720; J2405; J1885; C9113

== ENCOUNTER → 2017-12-25 | Outpatient (CLI) | payer BC ==
[2017-12-25 14:12] LABS: ALT 21 U/L (9-52); AST 24 U/L (14-36); Albumin 4.1 g/dL (3.5-5.0); Alkaline Phosphatase 54 U/L (38-126); Anion Gap 12 mmol/L; Blood Urea Nitrogen 10 mg/dL (7-17); Calcium 9.7 mg/dL (8.4-10.2); Carbon Dioxide 25 mmol/L (22-30); Chloride 104 mmol/L (98-107); Glucose 88 mg/dL (74-99); Potassium 4.1 mmol/L (3.5-5.1); Sodium 141 mmol/L (137-145); Total Bilirubin 0.3 mg/dL (0.2-1.3); Total Protein 6.4 g/dL (6.3-8.2)
== END | disposition home or self-care (01) ==
LOC: LABWHC1 13:34
PROVIDERS: ATTEND Internal Medicine
DX: E55.9 Vitamin D deficiency, unspecified (principal); R63.1 Polydipsia
CPT/HCPCS: 36415; 80053; 82306; 83930; 83935

== ENCOUNTER 2018-05-15 03:40 | Emergency (ER) | payer BC ==
[2018-05-15 03:46] VITALS: TEMP 97.7
[2018-05-15] MEDS ORDERED: HYDROCORTISONE SUCCINATE 100 MG/2 ML VIAL IV STA (04:44)
[2018-05-15] MEDS ORDERED: SODIUM CHLORIDE 0.9% 1,000 ML IV ONE (04:45)
[2018-05-15] MEDS ORDERED: ONDANSETRON 4 MG/2 ML VIAL IVP STA (04:45)
[2018-05-15 05:21] LABS: Basophils % (A) 1 %; Eosinophils % (A) 1 %; HCT 36.2 % (34.0-46.0); HGB 11.8 gm/dL (11.4-16.0); Lymphocytes % (A) 42 %; MCH 31.1 pg (25.0-35.0); MCHC 32.5 g/dL (31.0-37.0); MCV 95.8 fL (80.0-100.0); Mean Platelet Volume 7.4; Monocytes # (A) 0.3 k/uL (0-1.0); Monocytes % (A) 6 %; Neutrophils # (A) 2.4 k/uL (1.3-7.7); Neutrophils % (A) 49 %; Platelet Count 193 k/uL (150-450); RBC 3.78 m/uL (3.80-5.40); RDW 13.5 % (11.5-15.5); WBC 4.8 k/uL (3.8-10.6)
[2018-05-15 05:34] LABS: ALT 35 U/L (9-52); AST 41 U/L (14-36); Albumin 3.8 g/dL (3.5-5.0); Alkaline Phosphatase 48 U/L (38-126); Anion Gap 8 mmol/L; Blood Urea Nitrogen 7 mg/dL (7-17); Calcium 9.9 mg/dL (8.4-10.2); Carbon Dioxide 19 mmol/L (22-30); Chloride 111 mmol/L (98-107); Digoxin <0.4 ng/mL; Glucose 97 mg/dL (74-99); Potassium 3.8 mmol/L (3.5-5.1); Sodium 138 mmol/L (137-145); Total Bilirubin 0.4 mg/dL (0.2-1.3); Total Protein 6.3 g/dL (6.3-8.2)
--- NOTE | 2018-05-15 05:35 | XR ---
EXAM: XR Chest, 2 Views CLINICAL HISTORY: : Pain TECHNIQUE: Frontal and lateral views of the chest. COMPARISON: 01/11/14 FINDINGS: Lungs: Interval development of small density right lower lobe. This is not demonstrated in the lateral projection. This may represent some superimposed vascular markings. Follow-up evaluation as clinically indicated recommended to assess stability Pleural space: Unremarkable. No pneumothorax. Heart: Unremarkable. No cardiomegaly. Mediastinum: Unremarkable. Bones/joints: Unremarkable. IMPRESSION: Small density noted in the right lung base new from prior study. This is nonspecific. Follow-up evaluation to assess stability as clinically indicated is recommended
[2018-05-15 05:40] LABS: Appearance,Urine Cloudy (Clear); Bacteria,Urine Rare /hpf; Bilirubin,Urine Negative (Negative); Blood,Urine Negative (Negative); Color,Urine Yellow; Glucose,Urine (UA) Negative (Negative); Ketones,Urine Negative (Negative); Leukocyte Esterase,Urine Large (Negative); Mucus,Urine Many /hpf; Nitrite,Urine Negative (Negative); Protein,Urine Trace (Negative); RBC,Urine 2 /hpf (0-5); Specific Gravity,Urine 1.015 (1.001-1.035); Squamous Epithelial Cell,Urine <1 /hpf (0-4); Urobilinogen,Urine <2.0 mg/dL (<2.0); WBC,Urine 7 /hpf (0-5)
[2018-05-15 05:58] VITALS: RESP 18
--- NOTE | 2018-05-15 06:30 | ED ---
ENT HPI - General Chief complaint: ENT Stated complaint: ENT Time Seen by Provider: 05/15/18 04:22 Source: patient Mode of arrival: ambulatory Limitations: no limitations - History of Present Illness Initial comments: This patient is a 53-year-old woman with history of previous adrenal insufficiency, who presents with concern that she may be requiring additional IV steroids. She had been having episodes of nausea and vomiting today and then was not able to keep her medication down. She does have 1 dose of IM steroids that she keeps and she had taken this earlier but continued to have vomiting. Patient denies fever or chills, abdominal pain, hematemesis or any blood with bowel movements MD complaint: other (Nausea and vomiting) Onset/Timin -: days(s) Severity: moderate Improves with: none Worsens with: none - Related Data Home Medications Medication Instructions Recorded Confirmed Hydroxychloroquine Sulfate 200 mg PO DAILY 04/07/16 07/05/17 [Plaquenil] Meloxicam [Mobic] 7.5 mg PO DAILY PRN 04/07/16 07/05/17 Montelukast Sodium [Singulair] 10 mg PO HS 04/07/16 07/05/17 Omeprazole 20 mg PO BID PRN 04/07/16 07/05/17 Nadolol [Corgard] 20 mg PO DAILY 09/21/16 07/05/17 Topiramate [Topamax] 100 mg PO BID 09/21/16 07/05/17 Digoxin [Digitek] 125 mcg PO DAILY 07/05/17 07/05/17 Previous Rx's Medication Instructions Recorded Fludrocortisone Acetate 0.1 mg PO DAILY #30 07/05/17 Hydrocortisone [Cortef] 10 mg PO DAILY #30 tablet 07/05/17 Azithromycin [Zithromax Z-pack] 250 mg PO DIRECTED #6 tab 05/15/18 Allergies Allergy/AdvReac Type Severity Reaction Status Date / Time Iodinated Contrast- Oral and Allergy Anaphylaxis Verified 05/15/18 03:46 IV Dye [Iodinated Contrast Media - IV Dye] Penicillins Allergy Rash/Hives Verified 05/15/18 03:46 shellfish derived [Shellfish] Allergy Unknown Verified 05/15/18 03:46 codeine AdvReac Nausea & Verified 05/15/18 03:46 Vomiting Review of Systems ROS Statement: Those systems with pertinent positive or pertinent negative responses have been documented in the HPI. ROS Other: All systems not noted in ROS Statement are negative. Constitutional: Denies: fever, chills Respiratory: Denies: cough, dyspnea Cardiovascular: Denies: chest pain, palpitations, edema Gastrointestinal: Reports: nausea, vomiting, diarrhea. Denies: abdominal pain, hematemesis, melena, hematochezia Genitourinary: Denies: dysuria, hematuria Musculoskeletal: Denies: back pain Skin: Denies: rash Neurological: Denies: headache, weakness, numbness Past Medical History Past Medical History: COPD, Hyperlipidemia, Syncope Additional Past Medical History / Comment(s): svt syncopal episodes, adrenal insufficiency, LUPUS, chronic nausea History of Any Multi-Drug Resistant Organisms: None Reported Past Surgical History: Hernia Repair Additional Past Surgical History / Comment(s): cardiac ablations x 2 vocal cord surg, bronch with lung washings x 2 Past Anesthesia/Blood Transfusion Reactions: Postoperative Nausea & Vomiting ( PONV) Additional Past Anesthesia/Blood Transfusion Reaction / Comment(s): WAKES UP CONFUSED Past Psychological History: No Psychological Hx Reported Smoking Status: Never smoker Past Alcohol Use History: Rare Past Drug Use History: None Reported - Past Family History Mother Family Medical History: Cancer Father Family Medical History: Cancer Brother(s) Family Medical History: Cancer General Exam Limitations: no limitations General appearance: alert, in no apparent distress Head exam: Present: atraumatic, normocephalic Eye exam: Present: normal appearance. Absent: scleral icterus, conjunctival injection Respiratory exam: Present: normal lung sounds bilaterally. Absent: respiratory distress, wheezes, rales, rhonchi, stridor Cardiovascular Exam: Present: regular rate, normal rhythm, normal heart sounds. Absent: systolic murmur, diastolic murmur, rubs, gallop GI/Abdominal exam: Present: soft. Absent: distended, tenderness, guarding, rebound, rigid, mass Extremities exam: Present: normal inspection, normal capillary refill. Absent: pedal edema, calf tenderness Back exam: Present: normal inspection. Absent: CVA tenderness (R), CVA tenderness (L) Neurological exam: Present: alert Skin exam: Present: warm, dry, intact, normal color. Absent: rash Course Vital Signs 05/15/18 05/15/18 05/15/18 03:43 05:57 06:37 Temperature 97.7 F 97.7 F Pulse Rate 64 60 58 L Respiratory 17 18 18 Rate Blood Pressure 120/78 109/70 112/68 O2 Sat by Pulse 100 99 100 Oximetry Medical Decision Making - Medical Decision Making Patient's 53-year-old woman with adrenal insufficiency who had nausea and vomiting and was not able keep her medications down. She did receive IV dose of cortisone. Also received IV fluids and she is feeling much better on reevaluation. She was able tolerate oral intake. She did request to go home. Discussed return parameters as well as appropriate follow-up - Lab Data Result diagrams: 05/15/18 05:02 05/15/18 05:02 Lab Results 05/15/18 05/15/18 05/15/18 Range/Units 05:02 05:02 05:15 WBC 4.8 (3.8-10.6) k/uL RBC 3.78 L (3.80-5.40) m/uL Hgb 11.8 (11.4-16.0) gm/dL Hct 36.2 (34.0-46.0) % MCV 95.8 (80.0-100.0) fL MCH 31.1 (25.0-35.0) pg MCHC 32.5 (31.0-37.0) g/dL RDW 13.5 (11.5-15.5) % Plt Count 193 (150-450) k/uL Neutrophils % 49 % Lymphocytes % 42 % Monocytes % 6 % Eosinophils % 1 % Basophils % 1 % Neutrophils # 2.4 (1.3-7.7) k/uL Lymphocytes # 2.0 (1.0-4.8) k/uL Monocytes # 0.3 (0-1.0) k/uL Eosinophils # 0.0 (0-0.7) k/uL Basophils # 0.0 (0-0.2) k/uL Sodium 138 (137-145) mmol/L Potassium 3.8 (3.5-5.1) mmol/L Chloride 111 H (98-107) mmol/L Carbon Dioxide 19 L (22-30) mmol/L Anion Gap 8 mmol/L BUN 7 (7-17) mg/dL Creatinine 0.65 (0.52-1.04) mg/dL Est GFR (CKD-EPI)AfAm >90 (>60 ml/min/1.73 sqM) Est GFR (CKD-EPI)NonAf >90 (>60 ml/min/1.73 sqM) Glucose 97 (74-99) mg/dL Calcium 9.9 (8.4-10.2) mg/dL Total Bilirubin 0.4 (0.2-1.3) mg/dL AST 41 H (14-36) U/L ALT 35 (9-52) U/L Alkaline Phosphatase 48 (38-126) U/L Total Protein 6.3 (6.3-8.2) g/dL Albumin 3.8 (3.5-5.0) g/dL Urine Color Yellow Urine Appearance Cloudy H (Clear) Urine pH 6.0 (5.0-8.0) Ur Specific [place] 1.015 (1.001-1.035) Urine Protein Trace H (Negative) Urine Glucose (UA) Negative (Negative) Urine Ketones Negative (Negative) Urine Blood Negative (Negative) Urine Nitrite Negative (Negative) Urine Bilirubin Negative (Negative) Urine Urobilinogen <2.0 (<2.0) mg/dL Ur Leukocyte Esterase Large H (Negative) Urine RBC 2 (0-5) /hpf Urine WBC 7 H (0-5) /hpf Ur Squamous Epith Cells <1 (0-4) /hpf Urine Bacteria Rare H (None) /hpf Urine Mucus Many H (None) /hpf Digoxin <0.4 ng/mL Disposition Clinical Impression: Nausea and vomiting, Adrenal insufficiency, Acute sinusitis Disposition: HOME SELF-CARE Condition: Good Instructions: Sinusitis (ED) Prescriptions: Azithromycin [Zithromax Z-pack] 250 mg PO DIRECTED #6 tab Is patient prescribed a controlled substance at d/c from ED?: No Referrals: Leeann Shah MD [Primary Care Provider] - 1-2 days
[2018-05-15 06:47] VITALS: BP 112/68; PULSE 58
== END 2018-05-15 06:46 | disposition home or self-care (01) ==
LOC: EC 03:40
DX: E27.40 Unspecified adrenocortical insufficiency (principal); J01.90 Acute sinusitis, unspecified; J44.9 Chronic obstructive pulmonary disease, unspecified; Z88.0 Allergy status to penicillin; Z88.5 Allergy status to narcotic agent; Z91.013 Allergy to seafood; Z91.041 Radiographic dye allergy status; Z79.899 Other long term (current) drug therapy
CPT/HCPCS: 36415; 80053; 80162; 85025; 81001; 71046; 99284; 96374; 96375; 96361; J1720; J2405

== ENCOUNTER → 2018-05-20 | Outpatient (CLI) | payer BC ==
[2018-05-20 15:02] LABS: Appearance,Urine Clear (Clear); Bilirubin,Urine Negative (Negative); Blood,Urine Negative (Negative); Color,Urine Colorless; Glucose,Urine (UA) Negative (Negative); Ketones,Urine Negative (Negative); Leukocyte Esterase,Urine Negative (Negative); Nitrite,Urine Negative (Negative); PH, Urine 5.5 (5.0-8.0); Protein,Urine Negative (Negative); Specific Gravity,Urine 1.003 (1.001-1.035); Urobilinogen,Urine <2.0 mg/dL (<2.0)
[2018-05-20 15:12] LABS: Basophils % (A) 1 %; Eosinophils # (A) 0.1 k/uL (0-0.7); Eosinophils % (A) 2 %; HCT 40.2 % (34.0-46.0); HGB 12.6 gm/dL (11.4-16.0); Lymphocytes # (A) 1.5 k/uL (1.0-4.8); Lymphocytes % (A) 38 %; MCH 30.7 pg (25.0-35.0); MCHC 31.3 g/dL (31.0-37.0); MCV 98.3 fL (80.0-100.0); Mean Platelet Volume 7.2; Monocytes # (A) 0.2 k/uL (0-1.0); Monocytes % (A) 6 %; Neutrophils % (A) 52 %; Platelet Count 217 k/uL (150-450); RBC 4.09 m/uL (3.80-5.40); RDW 13.5 % (11.5-15.5); WBC 3.9 k/uL (3.8-10.6)
[2018-05-20 15:31] LABS: ALT 32 U/L (9-52); AST 23 U/L (14-36); Albumin 4.4 g/dL (3.5-5.0); Alkaline Phosphatase 57 U/L (38-126); Anion Gap 11 mmol/L; Blood Urea Nitrogen 14 mg/dL (7-17); C Reactive Protein <5.0 mg/L (<10.0); Calcium 9.9 mg/dL (8.4-10.2); Carbon Dioxide 18 mmol/L (22-30); Chloride 110 mmol/L (98-107); Glucose 82 mg/dL (74-99); Potassium 3.8 mmol/L (3.5-5.1); Sodium 139 mmol/L (137-145); Total Bilirubin 0.5 mg/dL (0.2-1.3)
[2018-05-20 16:00] LABS: Erythrocyte Sedimentation Rate 11 mm/hr (0-20)
[2018-05-20 20:27] LABS: Anti-DNA, DS unit <1.0 IU/mL; DNA Double-Stranded NEGATIVE (NEGATIVE)
== END | disposition home or self-care (01) ==
LOC: LABWHC1 14:22
PROVIDERS: ATTEND Internal Medicine
DX: E27.3 Drug-induced adrenocortical insufficiency (principal); M32.19 Other organ or system involvement in systemic lupus erythematosus
CPT/HCPCS: 36415; 80053; 81003; 85025; 85652; 86140; 86160; 86225

== ENCOUNTER → 2018-12-29 | Outpatient (CLI) | payer BC ==
[2018-12-29 17:13] LABS: Basophils % (A) 1 %; Eosinophils # (A) 0.1 k/uL (0-0.7); Eosinophils % (A) 2 %; HCT 36.2 % (34.0-46.0); HGB 11.9 gm/dL (11.4-16.0); Lymphocytes # (A) 1.7 k/uL (1.0-4.8); Lymphocytes % (A) 40 %; MCH 31.5 pg (25.0-35.0); MCV 95.3 fL (80.0-100.0); Mean Platelet Volume 7.8; Monocytes # (A) 0.2 k/uL (0-1.0); Monocytes % (A) 5 %; Neutrophils # (A) 2.1 k/uL (1.3-7.7); Neutrophils % (A) 49 %; Platelet Count 204 k/uL (150-450); RBC 3.79 m/uL (3.80-5.40); RDW 13.8 % (11.5-15.5); WBC 4.2 k/uL (3.8-10.6)
[2018-12-30 01:08] LABS: Calcium 9.5 mg/dL (8.7-10.3); Potassium 3.9 mmol/L (3.5-5.5)
== END | disposition home or self-care (01) ==
LOC: LABWHC1 16:25
PROVIDERS: ATTEND Anesthesiology
DX: Z01.812 Encounter for preprocedural laboratory examination (principal)
CPT/HCPCS: 36415; 80048; 85025

== ENCOUNTER → 2019-04-08 | Outpatient (CLI) | payer BC ==
[2019-04-08 13:57] LABS: Basophils % (A) 1 %; Eosinophils # (A) 0.1 k/uL (0-0.7); Eosinophils % (A) 2 %; HCT 36.3 % (34.0-46.0); HGB 11.8 gm/dL (11.4-16.0); Lymphocytes # (A) 2.1 k/uL (1.0-4.8); Lymphocytes % (A) 44 %; MCH 31.1 pg (25.0-35.0); MCHC 32.5 g/dL (31.0-37.0); MCV 95.6 fL (80.0-100.0); Mean Platelet Volume 7.3; Monocytes # (A) 0.2 k/uL (0-1.0); Monocytes % (A) 5 %; Neutrophils # (A) 2.3 k/uL (1.3-7.7); Neutrophils % (A) 47 %; Platelet Count 231 k/uL (150-450); RDW 13.7 % (11.5-15.5); WBC 4.8 k/uL (3.8-10.6)
[2019-04-08 15:20] LABS: Erythrocyte Sedimentation Rate 16 mm/hr (0-20)
[2019-04-08 20:37] LABS: ALT 15 U/L (8-44); AST 20 U/L (13-35); African American GFR (CKD) 96.9 (60.0-200.0); Albumin/Globulin Ratio 2.28 (1.60-3.17); Alkaline Phosphatase 62 U/L (41-126); C Reactive Protein <0.4 mg/dL (0.0-0.8); Calcium 9.3 mg/dL (8.7-10.3); Carbon Dioxide 19.4 mmol/L (21.6-31.8); Chloride 106 mmol/L (96-109); Globulin 1.8 g/dL (1.6-3.3); Glucose 103 mg/dL (70-110); Magnesium 2.1 mg/dL (1.5-2.4); Potassium 3.9 mmol/L (3.5-5.5); Sodium 135 mmol/L (135-145); Total Bilirubin 0.4 mg/dL (0.3-1.2); Total Protein 5.9 g/dL (6.2-8.2)
== END | disposition home or self-care (01) ==
LOC: LABWHC1 13:19
PROVIDERS: ATTEND Family Medicine
DX: R51 Headache (principal)
CPT/HCPCS: 36415; 80053; 83735; 85025; 85652; 86038; 86140

== ENCOUNTER → 2019-05-04 | Outpatient (CLI) | payer BC ==
--- NOTE | 2019-05-04 16:44 | ECHOF ---
Referral Reason:R06.02 shortness of breath, R91.1 pulmonary nodule MEASUREMENTS -------- HEIGHT: 137.2 cm WEIGHT: 74.4 kg BP: RVIDd: 2.6 cm (< 3.3) IVSd: 0.7 cm (0.6 - 1.1) LVIDd: 4.0 cm (3.9 - 5.3) LVPWd: 1.0 cm (0.6 - 1.1) IVSs: 1.1 cm LVIDs: 2.9 cm LVPWs: 1.2 cm LA Diam: 2.5 cm (2.7 - 3.8) LAESV Index (A-L): 17.37 ml/m Ao Diam: 2.7 cm (2.0 - 3.7) AV Cusp: 1.9 cm (1.5 - 2.6) LA Diam: 3.0 cm (2.7 - 3.8) MV EXCURSION: 20.954 mm (> 18.000) MV EF SLOPE: 135 mm/s (70 - 150) EPSS: 0.3 cm MV E Tunde: 0.74 m/s MV DecT: 134 ms MV A Tunde: 0.48 m/s MV E/A Ratio: 1.54 RAP: 5.00 mmHg RVSP: 15.06 mmHg FINDINGS -------- Sinus rhythm. This was a technically good study. LV size, wall thickness and systolic function are normal, with an EF greater than 55%. The left srinivasan tricular size is normal. The diastolic filling pattern is normal for the age of the patient 6.28. The right ventricle is normal in size. The left atrial size is normal. Normal LA size by volume 22+/-6 ml/m2. The right atrial size is normal. The aortic valve is trileaflet, and appears structurally normal. No aortic stenosis or regurgitation. Mild mitral annular calcification present. Mild mitral regurgitation is present. Mild tricuspid regurgitation present. There is no evidence of pulmonary hypertension. The right v entricular systolic pressure, as measured by Doppler, is 15.06mmHg. There is no pulmonic regurgitation present. The aortic root size is normal. There is no pericardial effusion. CONCLUSIONS -------- 1. Sinus rhythm. 2. This was a technically good study. 3. LV size, wall thickness and systolic function are normal, with an EF greater than 55%. 4. The left ventricular size is normal. 5. The diastolic filling pattern is normal for the age of the patient 6.28 6. The right ventricle is normal in size. 7. The left atrial size is normal. 8. Normal LA size by volume 22+/-6 ml/m2. 9. The right atrial size is normal. 10. The aortic valve is trileaflet, and appears structurally normal. No aortic stenosis or regurgitat ion. 11. Mild mitral annular calcification present. 12. Mild mitral regurgitation is present. 13. Mild tricuspid regurgitation present. 14. There is no evidence of pulmonary hypertension. 15. The right ventricular systolic pressure, as measured by Doppler, is 15.06mmHg. 16. There is no pulmonic regurgitation present. 17. The aortic root size is normal. 18. There is no pericardial effusion. MUSICAL INSTRUMENT MAKER OR REPAIRER: Mesha Tolentino RDCS
--- NOTE | 2019-05-06 03:43 | CT ---
EXAMINATION TYPE: CT chest wo con DATE OF EXAM: 05/04/2019 COMPARISON: HRCT 08/21/[address] 05/24/2010 HISTORY: 53-year-old female SOB X 6 weeks. History of lupus. Strong family hx of lung ca. TECHNIQUE: Contiguous axial scanning of the chest without IV contrast. Coronal and sagittal reconstru ctions performed. CT DLP: 146.7 mGycm Automated exposure control for dose reduction was used. FINDINGS: Heart normal size without pericardial effusion. Mild coronary vessel calcifications are present. Aorta normal caliber with conventional arch was a branching anatomy. No thoracic lymphadenopathy. Mild biapical pleural-parenchymal scarring. No consolidation or pleural effusion. Tiny 3 mm subpleura l pulmonary nodule peripheral right midlung was present back on 05/24/2010. A 1.4 cm hypodense lesion posterior right hepatic dome previously measured 8 mm in 2009. Indolent beh avior suggests a benign etiology such as a small cyst. Bones: Mild to moderate degenerative disc disease midthoracic spine. No osseous destructive process. IMPRESSION: STABLE TINY 3 MM SUBPLEURAL PULMONARY NODULE ON THE RIGHT. MILD BIAPICAL PLEURAL-PARENCHYMAL SCARRING AND MILD CORONARY ARTERY CALCIFICATIONS. NO ACUTE PULMONARY PROCESS.
== END | disposition home or self-care (01) ==
LOC: RADCTMAIN 15:13
PROVIDERS: ATTEND Family Medicine
DX: I08.1 Rheumatic disorders of both mitral and tricuspid valves (principal); R91.1 Solitary pulmonary nodule; J94.8 Other specified pleural conditions; I25.10 Atherosclerotic heart disease of native coronary artery without angina pectoris
CPT/HCPCS: 71250; 93306

== ENCOUNTER → 2019-08-18 | Outpatient (CLI) | payer BC ==
--- NOTE | 2019-08-18 15:29 | US ---
EXAMINATION TYPE: US thyroid st tissue head/neck DATE OF EXAM: 08/18/2019 COMPARISON: NONE CLINICAL HISTORY: R59.0 Enlarged lymph nodes. Enlarged lymph nodes. Bilateral neck scanned, no evidence of lymphadenopathy. IMPRESSION: No evidence for adenopathy within the [id number].
== END | disposition home or self-care (01) ==
LOC: RADUSWWP 14:54
PROVIDERS: ATTEND Family Medicine
DX: R59.0 Localized enlarged lymph nodes (principal)
CPT/HCPCS: 76536

== ENCOUNTER 2019-09-03 15:28 | Emergency (ER) | payer BC ==
[2019-09-03 15:43] VITALS: BP 113/72; PULSE 76; RESP 16; TEMP 97.3
--- NOTE | 2019-09-03 16:07 | ED ---
URI HPI - General Chief Complaint: Upper Respiratory Infection Stated Complaint: fever, congestion Time Seen by Provider: 09/03/19 15:46 Source: patient Mode of arrival: ambulatory Limitations: no limitations - History of Present Illness Initial Comments: Patient is a 54-year-old female, with past medical history of SVT, lupus, COPD, presenting to emergency Department with complaints of sinus pain, congestion for 5 days. Patient states she gets approximately 2-3 sinus infections a year after sustaining an injury to her nose and facial bones years ago. Patient states her symptoms started off as a normal value nose with clear drainage however has progressed steadily into severe sinus pain, pressure and now her teeth are hurting. Patient feels like she's been having hot flashes and chills as well as headaches. She has tried OTC medications without relief of symptoms. Patient denies chest pain, shortness of breath. Patient has no other complaints at this time. Upon arrival to the ER, her vital signs are stable. - Related Data Home Medications Medication Instructions Recorded Confirmed Hydroxychloroquine Sulfate 200 mg PO DAILY 04/07/16 07/05/17 [Plaquenil] Meloxicam [Mobic] 7.5 mg PO DAILY PRN 04/07/16 07/05/17 Montelukast Sodium [Singulair] 10 mg PO HS 04/07/16 07/05/17 Omeprazole 20 mg PO BID PRN 04/07/16 07/05/17 Nadolol [Corgard] 20 mg PO DAILY 09/21/16 07/05/17 Topiramate [Topamax] 100 mg PO BID 09/21/16 07/05/17 Digoxin [Digitek] 125 mcg PO DAILY 07/05/17 07/05/17 Previous Rx's Medication Instructions Recorded Fludrocortisone Acetate 0.1 mg PO DAILY #30 07/05/17 Hydrocortisone [Cortef] 10 mg PO DAILY #30 tablet 07/05/17 Azithromycin [Zithromax Z-pack] 250 mg PO DIRECTED #6 tab 05/15/18 Doxycycline Monohydrate [Monodox] 100 mg PO Q12HR 7 Days #14 cap 09/03/19 Allergies Allergy/AdvReac Type Severity Reaction Status Date / Time Iodinated Contrast Media Allergy Anaphylaxis Verified 09/03/19 15:40 [Iodinated Contrast Media - IV Dye] Penicillins Allergy Rash/Hives Verified 09/03/19 15:40 shellfish derived [Shellfish] Allergy Unknown Verified 09/03/19 15:40 codeine AdvReac Nausea & Verified 09/03/19 15:40 Vomiting Review of Systems ROS Statement: Those systems with pertinent positive or pertinent negative responses have been documented in the HPI. ROS Other: All systems not noted in ROS Statement are negative. Past Medical History Past Medical History: COPD, Hyperlipidemia, Syncope Additional Past Medical History / Comment(s): svt syncopal episodes, adrenal insufficiency, LUPUS, chronic nausea History of Any Multi-Drug Resistant Organisms: None Reported Past Surgical History: Hernia Repair Additional Past Surgical History / Comment(s): cardiac ablations x 2 vocal cord surg, bronch with lung washings x 2 Past Anesthesia/Blood Transfusion Reactions: Postoperative Nausea & Vomiting (PONV) Additional Past Anesthesia/Blood Transfusion Reaction / Comment(s): WAKES UP CONFUSED Past Psychological History: No Psychological Hx Reported Smoking Status: Never smoker Past Alcohol Use History: Rare Past Drug Use History: None Reported - Past Family History Mother Family Medical History: Cancer Father Family Medical History: Cancer Brother(s) Family Medical History: Cancer General Exam - General Exam Comments Initial Comments: GENERAL: Well-appearing, well-nourished and in no acute distress. HEAD: Atraumatic, normocephalic. EYES: Pupils equal round and reactive to light, extraocular movements intact, sclera anicteric, conjunctiva are normal. ENT: TMs normal, nares patent, oropharynx clear without exudates. Moist mucous membranes. Severe pain with palpation of bilateral maxillary sinuses as well as frontal sinuses. NECK: Normal range of motion, supple without lymphadenopathy or JVD. LUNGS: Breath sounds clear to auscultation bilaterally and equal. No wheezes rales or rhonchi. HEART: Regular rate and rhythm without murmurs, rubs or gallops. ABDOMEN: Soft, nontender, normoactive bowel sounds. No guarding, no rebound. No masses appreciated. : Deferred EXTREMITIES: Normal range of motion, no pitting or edema. No clubbing or cyanosis. NEUROLOGICAL: Normal speech, normal gait. PSYCH: Normal mood, normal affect. SKIN: Warm, Dry, normal turgor, no rashes or lesions noted. Limitations: no limitations Course Vital Signs 09/03/19 15:40 Temperature 97.3 F L Pulse Rate 76 Respiratory 16 Rate Blood Pressure 113/72 O2 Sat by Pulse 100 Oximetry Medical Decision Making - Medical Decision Making Patient is a 54-year-old female presenting signs and symptoms consistent with sinus infection 5 days. Patient has history of 2-3 a year. Vital signs are stable. Exam is consistent with a sinus infection. Patient has ALLERGY to penicillins, patient will be treated with doxycycline 7 days. Patient is agreement with this plan of care will follow-up with her PCP next week. Return parameters were discussed with the patient she verbalized understanding. Patient stable for discharge at this time. Disposition Clinical Impression: Sinusitis Disposition: HOME SELF-CARE Condition: Stable Instructions (If sedation given, give patient instructions): Sinusitis (ED) Additional Instructions: Please return to the Emergency Department if symptoms worsen or any other concerns. May take Tylenol / Motrin for symptom control as well as warm compresses. Follow-up with PCP. Prescriptions: Doxycycline Monohydrate [Monodox] 100 mg PO Q12HR 7 Days #14 cap Is patient prescribed a controlled substance at d/c from ED?: No Referrals: Leeann Shah MD [Primary Care Provider] - 1-2 days
== END 2019-09-03 16:16 | disposition home or self-care (01) ==
LOC: EC 15:28
DX: J32.9 Chronic sinusitis, unspecified (principal); J44.9 Chronic obstructive pulmonary disease, unspecified; I47.1 Supraventricular tachycardia; Z79.899 Other long term (current) drug therapy; Z91.041 Radiographic dye allergy status; Z88.0 Allergy status to penicillin; Z91.013 Allergy to seafood; Z88.5 Allergy status to narcotic agent
CPT/HCPCS: 99283

== ENCOUNTER 2020-07-16 12:06 | Observation (INO) | payer BC ==
--- NOTE | 2020-07-16 12:35 | ED ---
General Adult HPI - General Chief complaint: Shortness of Breath Stated complaint: SOB/Pain left shoulder Time Seen by Provider: 07/16/20 12:19 Source: patient, RN notes reviewed, old records reviewed Mode of arrival: ambulatory Limitations: no limitations - History of Present Illness Initial comments: 55-year-old female presenting for evaluation of dyspnea and left shoulder pain. Patient developed pain in her left scapula this morning about 8:30 AM. She is presenting for evaluation at 12:30. She has associated dyspnea with this. This is a sharp pain which is nonradiating. She has no central chest pain. She has history of lupus, COPD, previous history of SVT status post ablation. She denies URI symptoms. Denies cough Denies lower extremity pain or swelling. - Related Data Home Medications Medication Instructions Recorded Confirmed Hydroxychloroquine Sulfate 200 mg PO DAILY 04/07/16 07/16/20 [Plaquenil] Meloxicam [Mobic] 7.5 mg PO DAILY PRN 04/07/16 07/16/20 Montelukast Sodium [Singulair] 10 mg PO HS 04/07/16 07/16/20 Omeprazole 20 mg PO BID PRN 04/07/16 07/16/20 Topiramate [Topamax] 100 mg PO BID 09/21/16 07/16/20 nadoloL [Corgard] 20 mg PO DAILY 09/21/16 07/16/20 Digoxin [Digitek] 125 mcg PO DAILY 07/05/17 07/16/20 Ergocalciferol [Vitamin D2] 50,000 unit PO MO 07/16/20 07/16/20 Levalbuterol Hfa Inhaler [Xopenex 2 puff INHALATION Q6HR PRN 07/16/20 07/16/20 Hfa Inhaler] Levalbuterol Hfa Inhaler [Xopenex 2 puff INHALATION RT-HS 07/16/20 07/16/20 Hfa Inhaler] Previous Rx's Medication Instructions Recorded Fludrocortisone Acetate 0.1 mg PO DAILY #30 07/05/17 Hydrocortisone [Cortef] 10 mg PO DAILY #30 tablet 07/05/17 Allergies Allergy/AdvReac Type Severity Reaction Status Date / Time Iodinated Contrast Media Allergy Anaphylaxis Verified 07/16/20 13:49 [Iodinated Contrast Media - IV Dye] Penicillins Allergy Rash/Hives Verified 07/16/20 13:49 shellfish derived [Shellfish] Allergy Unknown Verified 07/16/20 13:49 codeine AdvReac Nausea & Verified 07/16/20 13:49 Vomiting Review of Systems ROS Statement: Those systems with pertinent positive or pertinent negative responses have been documented in the HPI. ROS Other: All systems not noted in ROS Statement are negative. Past Medical History Past Medical History: COPD, Hyperlipidemia, Syncope Additional Past Medical History / Comment(s): svt syncopal episodes, adrenal insufficiency, LUPUS, chronic nausea History of Any Multi-Drug Resistant Organisms: None Reported Past Surgical History: Hernia Repair Additional Past Surgical History / Comment(s): cardiac ablations x 2 vocal cord surg, bronch with lung washings x 2 Past Anesthesia/Blood Transfusion Reactions: Postoperative Nausea & Vomiting (PONV) Additional Past Anesthesia/Blood Transfusion Reaction / Comment(s): WAKES UP CONFUSED Past Psychological History: No Psychological Hx Reported Past Alcohol Use History: Rare Past Drug Use History: None Reported - Past Family History Mother Family Medical History: Cancer Father Family Medical History: Cancer Brother(s) Family Medical History: Cancer General Exam Limitations: no limitations General appearance: alert, in no apparent distress Head exam: Present: atraumatic, normocephalic Eye exam: Present: normal appearance, PERRL ENT exam: Present: normal exam Neck exam: Present: normal inspection. Absent: tenderness, meningismus Respiratory exam: Present: normal lung sounds bilaterally. Absent: respiratory distress, wheezes Cardiovascular Exam: Present: regular rate, normal rhythm GI/Abdominal exam: Present: soft. Absent: distended, tenderness, guarding, rebound Extremities exam: Present: normal inspection, normal capillary refill. Absent: pedal edema, calf tenderness Neurological exam: Present: alert, oriented X3, CN II-XII intact. Absent: motor sensory deficit Psychiatric exam: Present: normal affect, normal mood Skin exam: Present: warm, dry, intact. Absent: cyanosis, diaphoretic Course Vital Signs 07/16/20 07/16/20 12:10 13:19 Temperature 97.7 F Pulse Rate 92 Pulse Rate [ 72 Elevator Repairer ] Respiratory 18 20 Rate Blood Pressure 122/82 O2 Sat by Pulse 100 Oximetry EKG Findings - EKG Comments: EKG Findings:: EKG: Normal sinus rhythm, rate of 69, NH interval 132, QRS duration 106, QTC 428, no ST segment elevation. Medical Decision Making - Medical Decision Making 55 yo female presenting with dyspnea, left shoulder pain. Patient has diminished breath sounds bilaterally, no wheezing, no central chest pain. Patient has a sharp left sided scapular pain. Chest x-ray performed, negative for pneumothorax, no focal pneumonia. Patient has normal CBC, normal CMP, negative d-dimer, negative troponin. Given this atypical pain and dyspnea she will be treated for COPD as well as a second troponin will be ordered for ruling out ACS. Case is discussed with Dr. Foster who will admit. - Lab Data Result diagrams: 07/16/20 12:31 07/16/20 12:31 Lab Results 07/16/20 07/16/20 07/16/20 Range/Units 12:31 12:31 12:31 WBC 4.5 (3.8-10.6) k/uL RBC 4.04 (3.80-5.40) m/uL Hgb 13.1 (11.4-16.0) gm/dL Hct 39.4 (34.0-46.0) % MCV 97.4 (80.0-100.0) fL MCH 32.3 (25.0-35.0) pg MCHC 33.2 (31.0-37.0) g/dL RDW 13.2 (11.5-15.5) % Plt Count 212 (150-450) k/uL Neutrophils % 51 % Lymphocytes % 39 % Monocytes % 5 % Eosinophils % 2 % Basophils % 1 % Neutrophils # 2.3 (1.3-7.7) k/uL Lymphocytes # 1.7 (1.0-4.8) k/uL Monocytes # 0.2 (0-1.0) k/uL Eosinophils # 0.1 (0-0.7) k/uL Basophils # 0.0 (0-0.2) k/uL PT 9.9 (9.0-12.0) sec INR 0.9 (<1.2) APTT 23.9 (22.0-30.0) sec D-Dimer <0.17 (<0.60) mg/L FEU Sodium 139 (137-145) mmol/L Potassium 3.8 (3.5-5.1) mmol/L Chloride 109 H (98-107) mmol/L Carbon Dioxide 22 (22-30) mmol/L Anion Gap 8 mmol/L BUN 11 (7-17) mg/dL Creatinine 0.70 (0.52-1.04) mg/dL Est GFR (CKD-EPI)AfAm >90 (>60 ml/min/1.73 sqM) Est GFR (CKD-EPI)NonAf >90 (>60 ml/min/1.73 sqM) Glucose 96 (74-99) mg/dL Plasma Lactic Acid Saúl (0.7-2.0) mmol/L Calcium 9.6 (8.4-10.2) mg/dL Magnesium 2.1 (1.6-2.3) mg/dL Total Bilirubin 0.5 (0.2-1.3) mg/dL AST 31 (14-36) U/L ALT 22 (4-34) U/L Alkaline Phosphatase 62 (38-126) U/L Troponin I (0.000-0.034) ng/mL NT-Pro-B Natriuret Pep pg/mL Total Protein 6.8 (6.3-8.2) g/dL Albumin 4.2 (3.5-5.0) g/dL 07/16/20 07/16/20 07/16/20 Range/Units 12:31 12:31 12:31 WBC (3.8-10.6) k/uL RBC (3.80-5.40) m/uL Hgb (11.4-16.0) gm/dL Hct (34.0-46.0) % MCV (80.0-100.0) fL MCH (25.0-35.0) pg MCHC (31.0-37.0) g/dL RDW (11.5-15.5) % Plt Count (150-450) k/uL Neutrophils % % Lymphocytes % % Monocytes % % Eosinophils % % Basophils % % Neutrophils # (1.3-7.7) k/uL Lymphocytes # (1.0-4.8) k/uL Monocytes # (0-1.0) k/uL Eosinophils # (0-0.7) k/uL Basophils # (0-0.2) k/uL PT (9.0-12.0) sec INR (<1.2) APTT (22.0-30.0) sec D-Dimer (<0.60) mg/L FEU Sodium (137-145) mmol/L Potassium (3.5-5.1) mmol/L Chloride (98-107) mmol/L Carbon Dioxide (22-30) mmol/L Anion Gap mmol/L BUN (7-17) mg/dL Creatinine (0.52-1.04) mg/dL Est GFR (CKD-EPI)AfAm (>60 ml/min/1.73 sqM) Est GFR (CKD-EPI)NonAf (>60 ml/min/1.73 sqM) Glucose (74-99) mg/dL Plasma Lactic Acid Saúl 1.4 (0.7-2.0) mmol/L Calcium (8.4-10.2) mg/dL Magnesium (1.6-2.3) mg/dL Total Bilirubin (0.2-1.3) mg/dL AST (14-36) U/L ALT (4-34) U/L Alkaline Phosphatase (38-126) U/L Troponin I <0.012 (0.000-0.034) ng/mL NT-Pro-B Natriuret Pep 84 pg/mL Total Protein (6.3-8.2) g/dL Albumin (3.5-5.0) g/dL Disposition Clinical Impression: COPD (chronic obstructive pulmonary disease), Atypical chest pain Disposition: ADMITTED IP TO THIS [facility] Condition: Stable Is patient prescribed a controlled substance at d/c from ED?: No Referrals: Leeann Shah MD [Primary Care Provider] - 1-2 days Decision to Admit Reason: Admit from EC Decision Date: 07/16/20 Decision Time: 13:56
[2020-07-16 13:02] LABS: Basophils % (A) 1 %; Eosinophils # (A) 0.1 k/uL (0-0.7); Eosinophils % (A) 2 %; HCT 39.4 % (34.0-46.0); HGB 13.1 gm/dL (11.4-16.0); Lymphocytes # (A) 1.7 k/uL (1.0-4.8); Lymphocytes % (A) 39 %; MCH 32.3 pg (25.0-35.0); MCHC 33.2 g/dL (31.0-37.0); MCV 97.4 fL (80.0-100.0); Mean Platelet Volume 7.3; Monocytes # (A) 0.2 k/uL (0-1.0); Monocytes % (A) 5 %; Neutrophils # (A) 2.3 k/uL (1.3-7.7); Neutrophils % (A) 51 %; Platelet Count 212 k/uL (150-450); RBC 4.04 m/uL (3.80-5.40); RDW 13.2 % (11.5-15.5); WBC 4.5 k/uL (3.8-10.6)
--- NOTE | 2020-07-16 13:06 | XR ---
EXAMINATION TYPE: XR chest 2V DATE OF EXAM: 07/16/2020 COMPARISON: Prior chest x-ray 05/15/[address] 05/04/2019 HISTORY: Difficulty breathing TECHNIQUE: Frontal and lateral views of the chest are obtained. FINDINGS: There is no focal air space opacity, pleural effusion, or pneumothorax seen. The cardiac silhouette size is within normal limits. There are overlying cardiac leads. The osseous structures a re intact. IMPRESSION: No acute cardiopulmonary process.
[2020-07-16 13:11] LABS: ALT 22 U/L (4-34); AST 31 U/L (14-36); African American GFR (CKD) >90 (>60 ml/min/1.73 sqM); Albumin 4.2 g/dL (3.5-5.0); Alkaline Phosphatase 62 U/L (38-126); Anion Gap 8 mmol/L; Blood Urea Nitrogen 11 mg/dL (7-17); Calcium 9.6 mg/dL (8.4-10.2); Carbon Dioxide 22 mmol/L (22-30); Chloride 109 mmol/L (98-107); Glucose 96 mg/dL (74-99); Magnesium 2.1 mg/dL (1.6-2.3); Non-African American GFR(CKD) >90 (>60 ml/min/1.73 sqM); Potassium 3.8 mmol/L (3.5-5.1); Sodium 139 mmol/L (137-145); Total Bilirubin 0.5 mg/dL (0.2-1.3); Total Protein 6.8 g/dL (6.3-8.2)
[2020-07-16 13:39] LABS: INR 0.9 (<1.2); Partial Thromboplastin Time 23.9 sec (22.0-30.0); Prothrombin Time 9.9 sec (9.0-12.0)
[2020-07-16 13:43] LABS: D-Dimer <0.17 mg/L FEU (<0.60)
[2020-07-16] MEDS ORDERED: ALBUTEROL NEBULIZED 2.5 MG/3 ML INHALATION STA (13:44)
[2020-07-16] MEDS ORDERED: IPRATROPIUM-ALBUTEROL 3 ML NEB INHALATION STA (13:44)
[2020-07-16] MEDS ORDERED: methylPREDNISolone SOD SUCCI 125 MG/2 ML VIAL IV STA (13:47)
[2020-07-16] MEDS ORDERED: IPRATROPIUM-ALBUTEROL 3 ML NEB INHALATION PRN (13:52)
[2020-07-16 15:26] VITALS: RESP 16
[2020-07-16] MEDS: IPRATROPIUM-ALBUTEROL 3 ML NEB INHALATION SCH ×2 (17:34→21:00)
[2020-07-16] MEDS: methylPREDNISolone SOD SUCCI 125 MG/2 ML VIAL IV SCH ×2 (17:51→23:36)
--- NOTE | 2020-07-17 00:52 | HP ---
HISTORY AND PHYSICAL DATE OF SERVICE: 07/16/2020 CHIEF COMPLAINT: Chest pain, back pain. HISTORY OF PRESENT ILLNESS: This 55-year-old woman with a past medical history of multiple medical problems including history of COPD, hyperlipidemia, history of syncope, history of adrenal insufficiency, lupus, history of chronic nausea being followed by Dr. Leeann Shah in the outpatient setting, was admitted to the ER with complaints of left shoulder pain and chest pain. Initially the patient had shoulder pain at around 8:30 a.m. this morning around the scapula. The pain was increasing with respirations and the patient thought the patient had episode of pleurisy, which the patient had on multiple occasions, but subsequently patient had anterior chest pain as well which is more sharp in character and the patient also had some associated shortness of breath. The patient came to [facility] and was admitted for further evaluation and treatment. There is no history of fever or rigors. No history of headache, loss of consciousness, seizures. The chest x-ray done in the ER which I reviewed personally showed no evidence of any parenchymal disease and EKG showed T-wave changes in V1. The patient was admitted for further evaluation and treatment. Initial lab studies revealed CBC within normal limits. Chloride is 109. COVID is negative. Troponins also negative. There is no history of any fever or rigors. No history of headache, loss of consciousness or seizures. The patient also had multiple episodes of supraventricular tachycardia and cardiac ablated twice with Cardiology here. PAST MEDICAL HISTORY: COPD, hyperlipidemia, syncope, adrenal insufficiency, lupus, chronic nausea. MEDICATIONS: Home medications are: 1. Vitamin D2, 50,000 daily. 2. Omeprazole. 3. Singulair. 4. Mobic. 5. Xopenex. 6. Corgard. 7. Topamax. 8. Plaquenil. 9. Cortef. 10.Digitek. ALLERGIES: none FAMILY HISTORY: History of cancer in the family. SOCIAL HISTORY: No history of smoking. No history of alcohol intake. REVIEW OF SYSTEMS: ENT: No diminished hearing or diminished vision. CARDIOVASCULAR SYSTEM: As mentioned earlier. RESPIRATORY SYSTEM: As mentioned earlier. GI: No nausea. : No dysuria. NERVOUS SYSTEM: No numbness or weakness. ALLERGY/IMMUNOLOGY: No asthma, hay fever. MUSCULOSKELETAL: As mentioned earlier. HEMATOLOGY: No history of anemia. ENDOCRINE: As mentioned earlier. CONSTITUTIONAL: As mentioned earlier. DERMATOLOGY: Negative. RHEUMATOLOGY: As mentioned earlier. PSYCHIATRY: As mentioned earlier. PHYSICAL EXAMINATION: The patient is alert and oriented x3. The pulse is 65, blood pressure 110/76, respirations 16, temperature 97.8, pulse ox 98% on room air. HEENT: Conjunctivae normal. Oral mucosa moist. NECK: No jugular venous distention. No carotid bruit. No lymph node enlargement. CARDIOVASCULAR: S1, S2 muffled. RESPIRATORY: Breath sounds diminished at the bases. No rhonchi. No crackles. ABDOMEN: Soft, nontender. No mass palpable. LEGS: No edema, no swelling. NERVOUS SYSTEM: Higher function as mentioned earlier. Moves all 4 limbs. No focal deficits. LYMPHATICS: No lymphadenopathy of the neck, axillae or groin. SKIN: No ulcer, rash or bleeding. JOINTS: No active deforming arthropathy. LABS: CBC within normal limits and sodium 139, potassium 3.8. ASSESSMENT: 1. Chest and back pain, rule out coronary artery disease and unstable angina. 2. Rule out musculoskeletal pain and pleurisy. 3. History of chronic obstructive pulmonary disease. 4. Hyperlipidemia. 5. History of syncope. 6. History of supraventricular tachycardia and cardiac ablation. 7. History of adrenal insufficiency. 8. History of lupus. 9. History of chronic nausea. 10.History of postoperative nausea, vomiting. RECOMMENDATIONS AND DISCUSSION: This 55-year-old woman presented with multiple complex medical issues, we will monitor the patient closely, continue the current medications, continue symptomatic treatment. D-dimer is negative. I would also recommend a CT scan of the chest with no contrast as well to complete the workup. Otherwise, prognosis guarded. Further recommendations to follow. A copy forwarded to Dr. Leeann Shah who is the primary physician. MMODL / IJN: [id number] / TRACEY
[2020-07-17] MEDS: methylPREDNISolone SOD SUCCI 125 MG/2 ML VIAL IV SCH ×4 (05:33→23:59)
[2020-07-17] MEDS ORDERED: ACETAMINOPHEN TAB 325 MG TAB PO PRN (09:10)
[2020-07-17] MEDS: IPRATROPIUM-ALBUTEROL 3 ML NEB INHALATION SCH ×4 (09:13→21:12)
[2020-07-17] MEDS ORDERED: PANTOPRAZOLE 40 MG TABLET PO PRN (10:11)
[2020-07-17] MEDS ORDERED: MELOXICAM 7.5 MG TAB PO PRN (10:11)
[2020-07-17] MEDS ORDERED: NON FORMULARY DRUG (Levalbuterol Hfa Inhaler 200 PUFF/9 GM Inhaler) INHALATION PRN (10:11)
--- NOTE | 2020-07-17 10:37 | P.CRDCN ---
History of Present Illness History of present illness: HISTORY OF PRESENTING ILLNESS This is a pleasant 55-year-old female past medical history significant for dyslipidemia and SVT. She follows in the office with Dr. Jeffery. We have gilda archibald asked to see in consultation for chest pain. She states she woke up yesterday feeling short of breath. She felt like she couldn't take in a deep breath. As the morning progressed her breathing worsened. She then developed a pain in the left scapular region described as an ache. On arrival to the ER she was having ongoing shortness of breath. She was given IV steroids and an updraft treatment. She states after that her breathing improved and she was able to take a deep breath for the first time all day. She denies ever having had any pain in the chest. No dizziness or palpitations. [facility] echocardiogram obtained 04/2019 revealed preserved LV systolic function with EF greater than 55%, mild MR and mild TR noted. DIAGNOSTICS EKG reveals sinus mechanism with no acute ST or T-wave abnormalities. Telemetry tracings unremarkable for an acute arrhythmia. Chest xray negative for an acute cardiopulmonary proces. Laboratory reviewed, CBC unremarkable, d-dimer less than 0.17, sodium 139, potassium 3.8, creatinine 0.7, cardiac enzymes negative 2, NT proBNP 84 and Covid 19 negative. Current cardiac medications include digoxin 125 mcg daily and nadolol 20 mg daily. REVIEW OF SYSTEMS At the time of my exam: CONSTITUTIONAL: Denies fever or chills. CARDIOVASCULAR: Denies chest pain, shortness of breath, orthopnea, PND or palpitations. RESPIRATORY: Denies cough. GASTROINTESTINAL: Denies abdominal pain, diarrhea, constipation, nausea or vomiting. MUSCULOSKELETAL: Denies myalgias. NEUROLOGIC: Denies numbness, tingling or weakness. ENDOCRINE: Denies fatigue, weight change, polydipsia or polyurina. GENITOURINARY: Denies burning, hematuria or urgency with micturation. HEMATOLOGIC: Denies history of anemia or bleeding. PHYSICAL EXAMINATION Blood pressure 98/59 heart rate 72 afebrile and maintaining oxygen saturation on room air. CONSTITUTIONAL: No apparent distress. HEENT: Head is normocephalic. Pupils are equal, round. Sclerae anicteric. Mucous membranes of the mouth are moist. No JVD. No carotid bruit. CHEST EXAMINATION: Lungs are clear to auscultation. No chest wall tenderness is noted on palpation or with deep breathing. HEART EXAMINATION: Regular rate and rhythm. S1, S2 heard. No murmurs, gallops or rub. ABDOMEN: Soft, nontender. Positive bowel sounds. EXTREMITIES: 2+ peripheral pulses, no lower extremity edema and no calf tenderness. NEUROLOGIC EXAMINATION: Patient is awake, alert and oriented x3. ASSESSMENT Shortness of breath, an acute coronary event has been ruled out. Symptoms atypical for angina, relieved with updraft treatment. Suggestive of bronchitis. History of SVT PLAN An acute coronary event has been ruled out. Symptoms are atypical for angina, clinically improved with updraft and steroids, consider acute bronchitis. No further cardiac work-up at this time. Follow up and previously scheduled with Dr. Jeffery in the office. Thank you kindly for this consultation. Nurse Practitioner note has been reviewed, I agree with a documented findings and plan of care. Patient was seen and examined. Past Medical History Past Medical History: COPD, Hyperlipidemia, Syncope Additional Past Medical History / Comment(s): svt syncopal episodes, adrenal insufficiency, LUPUS, chronic nausea History of Any Multi-Drug Resistant Organisms: None Reported Past Surgical History: Hernia Repair Additional Past Surgical History / Comment(s): cardiac ablations x 2 vocal cord surg, bronch with lung washings x 2 Past Anesthesia/Blood Transfusion Reactions: Postoperative Nausea & Vomiting (PONV) Additional Past Anesthesia/Blood Transfusion Reaction / Comment(s): WAKES UP CONFUSED Past Psychological History: No Psychological Hx Reported Smoking Status: Never smoker Past Alcohol Use History: Rare Past Drug Use History: None Reported - Past Family History Mother Family Medical History: Cancer Father Family Medical History: Cancer Brother(s) Family Medical History: Cancer Medications and Allergies Home Medications Medication Instructions Recorded Confirmed Type Hydroxychloroquine Sulfate 200 mg PO DAILY 04/07/16 07/16/20 History [Plaquenil] Meloxicam [Mobic] 7.5 mg PO DAILY PRN 04/07/16 07/16/20 History Montelukast Sodium [Singulair] 10 mg PO HS 04/07/16 07/16/20 History Omeprazole 20 mg PO BID PRN 04/07/16 07/16/20 History Topiramate [Topamax] 100 mg PO BID 09/21/16 07/16/20 History nadoloL [Corgard] 20 mg PO DAILY 09/21/16 07/16/20 History Digoxin [Digitek] 125 mcg PO DAILY 07/05/17 07/16/20 History Fludrocortisone Acetate 0.1 mg PO DAILY #30 07/05/17 07/16/20 Rx Hydrocortisone [Cortef] 10 mg PO DAILY #30 tablet 07/05/17 07/16/20 Rx Ergocalciferol [Vitamin D2] 50,000 unit PO MO 07/16/20 07/16/20 History Levalbuterol Hfa Inhaler [Xopenex 2 puff INHALATION Q6HR PRN 07/16/20 07/16/20 History Hfa Inhaler] Levalbuterol Hfa Inhaler [Xopenex 2 puff INHALATION RT-HS 07/16/20 07/16/20 History Hfa Inhaler] Allergies Allergy/AdvReac Type Severity Reaction Status Date / Time Iodinated Contrast Media Allergy Anaphylaxis Verified 07/16/20 13:49 [Iodinated Contrast Media - IV Dye] Penicillins Allergy Rash/Hives Verified 07/16/20 13:49 shellfish derived [Shellfish] Allergy Unknown Verified 07/16/20 13:49 codeine AdvReac Nausea & Verified 07/16/20 13:49 Vomiting Physical Exam Vitals: Vital Signs Temp Pulse Pulse Pulse Resp BP BP 07/17/20 09:29 72 07/17/20 09:13 78 07/17/20 09:00 67 16 07/17/20 08:17 97.9 F 67 16 98/59 07/17/20 03:00 97.6 F 65 16 102/59 07/16/20 21:10 68 07/16/20 21:00 97.7 F 68 75 16 93/56 07/16/20 17:44 64 07/16/20 17:35 64 07/16/20 15:25 97.8 F 65 16 110/76 07/16/20 14:54 68 20 105/71 07/16/20 14:05 97.4 F L 64 16 114/71 07/16/20 13:19 72 20 07/16/20 12:10 97.7 F 92 18 122/82 Pulse Ox 07/17/20 09:29 07/17/20 09:13 07/17/20 09:00 07/17/20 08:17 97 07/17/20 03:00 99 07/16/20 21:10 07/16/20 21:00 96 07/16/20 17:44 07/16/20 17:35 07/16/20 15:25 98 07/16/20 14:54 100 07/16/20 14:05 98 07/16/20 13:19 07/16/20 12:10 100 Intake and Output 07/16/20 07/17/20 07/17/20 22:59 06:59 14:59 Other: Voiding Method Toilet # Voids 1 1 Results 07/16/20 12:31 07/16/20 12:31 Cardiac Enzymes 07/16/20 07/16/20 07/16/20 Range/Units 12:31 12:31 22:28 AST 31 (14-36) U/L Troponin I <0.012 <0.012 (0.000-0.034) ng/mL Coagulation 07/16/20 Range/Units 12:31 PT 9.9 (9.0-12.0) sec APTT 23.9 (22.0-30.0) sec CBC 07/16/20 Range/Units 12:31 WBC 4.5 (3.8-10.6) k/uL RBC 4.04 (3.80-5.40) m/uL Hgb 13.1 (11.4-16.0) gm/dL Hct 39.4 (34.0-46.0) % Plt Count 212 (150-450) k/uL Comprehensive Metabolic Panel 07/16/20 Range/Units 12:31 Sodium 139 (137-145) mmol/L Potassium 3.8 (3.5-5.1) mmol/L Chloride 109 H (98-107) mmol/L Carbon Dioxide 22 (22-30) mmol/L BUN 11 (7-17) mg/dL Creatinine 0.70 (0.52-1.04) mg/dL Glucose 96 (74-99) mg/dL Calcium 9.6 (8.4-10.2) mg/dL AST 31 (14-36) U/L ALT 22 (4-34) U/L Alkaline Phosphatase 62 (38-126) U/L Total Protein 6.8 (6.3-8.2) g/dL Albumin 4.2 (3.5-5.0) g/dL Current Medications Generic Name Dose Route Start Last Admin Trade Name Freq PRN Reason Stop Dose Admin Acetaminophen 650 mg 07/17/20 09:10 07/17/20 09:35 Acetaminophen Tab 325 Mg Tab PO 650 mg Q6HR PRN Administration Fever and/ or Pain Albuterol/Ipratropium 3 ml 07/16/20 13:52 Ipratropium-Albuterol 3 Ml Neb INHALATION RT-Q4H PRN Shortness Of Breath Or Wheezing Albuterol/Ipratropium 3 ml 07/16/20 16:00 07/17/20 09:13 Ipratropium-Albuterol 3 Ml Neb INHALATION 3 ml RT-QID BRANDON Administration Digoxin 125 mcg 07/17/20 11:00 Digoxin 125 Mcg Tab PO DAILY [facility] Ergocalciferol 50,000 unit 07/23/20 09:00 Ergocalciferol 50,000 Unit Cap PO MO BRANDON Fludrocortisone Acetate 0.1 mg 07/17/20 11:00 Fludrocortisone 0.1 Mg Tab PO DAILY [facility] Hydroxychloroquine Sulfate 200 mg 07/17/20 11:00 Hydroxychloroquine Sulfate 200 Mg Tab PO DAILY [facility] Meloxicam 7.5 mg 07/17/20 10:11 Meloxicam 7.5 Mg Tab PO DAILY PRN Pain Methylprednisolone Sodium Succinate 60 mg 07/16/20 18:00 07/17/20 05:33 Methylprednisolone Sod Succi 125 Mg/2 Ml Vial IV 60 mg Q6HR BRANDON Administration Montelukast Sodium 10 mg 07/17/20 21:00 Montelukast 10 Mg Tab PO HS [facility] Nadolol 20 mg 07/17/20 11:00 Nadolol 20 Mg Tab PO DAILY [facility] Pantoprazole Sodium 40 mg 07/17/20 10:11 Pantoprazole 40 Mg Tablet PO BID PRN Acid reflux/Heartburn Topiramate 100 mg 07/17/20 11:00 Topiramate 100 Mg Tab PO BID [facility] Intake and Output 07/16/20 07/17/20 07/17/20 22:59 06:59 14:59 Other: Voiding Method Toilet # Voids 1 1 07/16/20 12:31 07/16/20 12:31
--- NOTE | 2020-07-17 10:48 | ECHOF ---
Referral Reason:megan MEASUREMENTS -------- HEIGHT: 160.0 cm WEIGHT: 71.2 kg BP: 102/59 IVSd: 0.8 cm (0.6 - 1.1) LVIDd: 3.7 cm (3.9 - 5.3) LVPWd: 1.1 cm (0.6 - 1.1) IVSs: 1.0 cm LVIDs: 2.6 cm LVPWs: 1.4 cm RVIDd: 2.3 cm (< 3.3) LAESV Index (A-L): 22.03 ml/m Ao Diam: 3.0 cm (2.0 - 3.7) AV Cusp: 2.3 cm (1.5 - 2.6) EPSS: 0.5 cm MV E Tudne: 0.92 m/s MV DecT: 154 ms MV A Tunde: 0.55 m/s MV E/A Ratio: 1.67 RAP: 5.00 mmHg RVSP: 25.57 mmHg MV EF SLOPE: 114.60 mm/s (70 - 150) MV EXCURSION: 22.13 mm (> 18.000) FINDINGS -------- Sinus rhythm. This was a technically adequate study. The left ventricular size is normal. Left ventricular wall thickness is normal. Overall left vent ricular systolic function is normal with, an EF between 55 - 60 %. The diastolic filling pattern is normal for the age of the patient 7.54. The right ventricle is normal in size. Normal LA size by volume 22+/-6 ml/m2. The right atrial size is normal. Interatrial and interventricular septum intact. The aortic valve is trileaflet and appears structurally normal. There is no evidence of aortic regu rgitation. There is no evidence of aortic stenosis. No mitral regurgitation. Mild tricuspid regurgitation present. There is no evidence of pulmonary hypertension. The right v entricular systolic pressure, as measured by Doppler, is 25.57mmHg. Trace/mild (physiologic) pulmonic regurgitation. The aortic root size is normal. Normal inferior vena cava with normal inspiratory collapse consistent with estimated right atrial pre ssure of 5 mmHg. There is no pericardial effusion. CONCLUSIONS -------- 1. The left ventricular size is normal. 2. Left ventricular wall thickness is normal. 3. Overall left ventricular systolic function is normal with, an EF between 55 - 60 %. 4. The diastolic filling pattern is normal for the age of the patient 7.54 5. Mild tricuspid regurgitation present. 6. Trace/mild (physiologic) pulmonic regurgitation. MIRROR INSTALLER: Rebecca Castro RDCS
--- NOTE | 2020-07-17 11:02 | CT ---
EXAMINATION TYPE: CT chest wo con DATE OF EXAM: 07/17/2020 COMPARISON: 05/04/2019 and radiograph 07/16/2020 HISTORY: 55-year-old female with chest pain, assess for COPD TECHNIQUE: Contiguous axial scanning of the chest without IV contrast. Coronal and sagittal reconstru ctions performed. CT DLP: 159.1 mGycm Automated exposure control for dose reduction was used. FINDINGS: Heart normal size without pericardial effusion. LCA coronary artery calcifications are noted. Aorta normal caliber with conventional arch vessel branching anatomy. No thoracic lymphadenopathy allowing for noncontrast technique. Mild biapical pleural parenchymal scarring. No dominant centrilobular or paraseptal emphysematous cys ts are identified. Mild strandy posterior left basilar atelectasis. No consolidation or pleural effus ion. Tiny hiatal hernia. Calcified granuloma centrally within the spleen. Stable 1.3 cm cyst posterior rig ht hepatic dome and a second cyst posterior right liver lobe measuring 1.0 cm. Bones: Mild/moderate degenerative disc disease mid thoracic spine. IMPRESSION: 1. Mild biapical pleural-parenchymal scarring. No emphysematous cysts apparent by CT. Consider furthe r PFT testing if persistent clinical concern 2. No acute pulmonary process.
[2020-07-17] MEDS: DIGOXIN 125 MCG TAB PO SCH (11:10)
[2020-07-17] MEDS: HYDROXYCHLOROQUINE SULFATE 200 MG TAB PO SCH (11:10)
[2020-07-17] MEDS: TOPIRAMATE 100 MG TAB PO SCH ×2 (11:10→20:34)
[2020-07-17] MEDS: FLUDROCORTISONE 0.1 MG TAB PO SCH (11:10)
--- NOTE | 2020-07-17 18:46 | PN ---
PROGRESS NOTE DATE OF SERVICE: 07/17/2020 This 55-year-old woman who was admitted with chest and back pain is being evaluated to rule out coronary artery disease. Patient had a CT scan of the chest today which showed mild apical scarring. Otherwise, a 2D echo with Doppler showed ejection fraction about 55% to 60%. Diastolic filling pattern was normal. No chest pain. No palpitations. No fever. PHYSICAL EXAMINATION: Alert and oriented x3. Pulse is 62, blood pressure 84/54, respirations 16, temperature 98.3, pulse ox 97% on room air. HEENT: Conjunctivae normal. NECK: No jugular venous distention. CARDIOVASCULAR SYSTEM: S1, S2 muffled. RESPIRATORY SYSTEM: Breath sounds diminished at the bases. No rhonchi. No crackles. ABDOMEN: Soft, non-tender. No mass palpable. LEGS: No edema. No swelling. NERVOUS SYSTEM: No focal deficit. LABS: Labs at this time show CBC within normal limits. Sodium 139, potassium 3.8. ASSESSMENT: 1. Chronic neck and back pain. Rule out coronary artery disease and unstable angina. 2. Rule out musculoskeletal pain and pleurisy. 3. History of chronic obstructive pulmonary disease. 4. Apical scarring. 5. Hyperlipidemia. 6. History of syncope. 7. History of supraventricular tachycardia and cardiac ablation. 8. History of adrenal insufficiency. 9. History of lupus. 10.History of chronic nausea. 11.History of postoperative nausea and vomiting. RECOMMENDATIONS AND DISCUSSION: I recommend to continue current medications, continue with the monitoring, symptomatic treatment. Follow closely with Cardiology and Pulmonology. Guarded prognosis. Further recommendations to follow. Chest CT scan reviewed. Cardiology has seen the patient. MMODL / IJN: [id number] /
[2020-07-17] MEDS ORDERED: NON FORMULARY DRUG (Levalbuterol Hfa Inhaler 200 PUFF/9 GM Inhaler) INHALATION SCH (20:00)
[2020-07-17] MEDS ORDERED: MONTELUKAST 10 MG TAB PO SCH (21:00)
[2020-07-17] MEDS: BUDESONIDE 1 MG/2 ML NEBU INHALATION SCH (21:12)
[2020-07-17] MEDS: FORMOTEROL FUMARATE 20 MCG/2 ML NEBU INHALATION SCH (21:12)
--- NOTE | 2020-07-17 23:31 | CONS ---
CONSULTATION PULMONARY/CRITICAL CARE CONSULTATION: DATE OF SERVICE: 07/17/2020 This is a 55-year-old female well known to me. She does have a history of chronic bronchial asthma. I see her irregularly. Anyway, her primary care physician is Dr. Leeann Shah and she apparently presented to the emergency room on July 16 at 1206 with shortness of breath and pain in the left shoulder. The shortness of breath is worse on deep breathing. There is pain on deep breathing. It is a sharp pain. It seems to be centered in the posterior left upper shoulder area. There is no history of trauma. She denies any fever or chills. She states that when she gets a breathing treatment, she feels a bit better. The pain only began a day or so prior to admission. Again, she denies any trauma. There is no fever or chills. There is no significant cough. She is not producing any phlegm. She denies anterior chest pain. She denies nausea, vomiting, diarrhea, abdominal pain. She went to the ER to be evaluated for this issue. She does have a history of asthma, as I mentioned, a history of SVT, status post ablation, and a history of lupus. She is not feeling any better today than she did yesterday. HOME MEDICATIONS: Reviewed. She is on Plaquenil 200 mg a day, Mobic 7.5 mg p.r.n., Singulair, omeprazole, Topamax, Corgard, digoxin, vitamin D2, Xopenex inhaler, Florinef and hydrocortisone. ALLERGIES: IVP DYE, PENICILLIN, SHELLFISH and CODEINE. MEDICAL HISTORY: Medical history includes asthma, hyperlipidemia, syncope, lupus, adrenal insufficiency and SVT. SURGICAL HISTORY: Surgical history includes hernia repair, cardiac ablation x2, vocal cord surgery, bronchoscopy x2. SOCIAL HISTORY: Negative for tobacco use. She drinks alcohol rarely. No illicit drug use. FAMILY HISTORY: Positive for cancer in her mother, father and brother. REVIEW OF SYSTEMS: CONSTITUTIONAL: Negative. NEUROLOGIC: Negative. HEENT: Negative. CARDIOVASCULAR: Chest pain as described. PULMONARY: Chest pain, shortness of breath. GI: Negative. : Negative. RHEUMATOLOGIC: Negative. IMMUNOLOGIC: Negative. ENDOCRINOLOGIC: Negative. DERMATOLOGIC: Negative. PHYSICAL EXAMINATION: VITAL SIGNS: Current vital signs are reviewed. Temperature is 98.3, heart rate 62, respiratory rate 16, blood pressure 84/54, mean 64, room-air saturation 97%. GENERAL APPEARANCE: She appears in no acute distress. No respiratory distress, audible wheezing or conversational dyspnea. HEENT: Examination is grossly unremarkable. NECK: Supple. Full range of motion. No adenopathy. Neck veins are flat. CARDIOVASCULAR: Examination reveals regular rhythm and rate. S1, S2 normal. No S3, S4 or murmur. LUNGS: Lungs are clear. Breath sounds equal. No wheezes, rhonchi or crackles. ABDOMEN: Soft. Bowel sounds are heard. EXTREMITIES: Intact. No edema. SKIN: Without rash. NEUROLOGIC: Neurologic examination is brief but nonfocal. LABS/IMAGING: Reviewed. CBC is normal. White count 4.5, hemoglobin 13.1, hematocrit 39.4, platelet count 212,000. PT, INR and PTT normal. D-dimer normal. Sodium 139, potassium 3.8, chloride 109, CO2 22. Anion gap is 8. BUN and creatinine were 11 and 0.7. The rest of the comprehensive metabolic profile was normal. C-reactive protein less than 5. COVID- 19 testing was negative. The patient had a chest x-ray which was normal. An EKG was done. It showed normal sinus rhythm. A CT angiogram was done that was essentially negative. MEDICATIONS: Medications are reviewed. Currently she is on Tylenol, digoxin, vitamin D2, Florinef, hydroxychloroquine, DuoNeb, Mobic, Solu-Medrol, Singulair, nadolol, Protonix and Topamax. ASSESSMENT: 1. Shortness of breath, pain on deep inspiration, sharp pleuritic-type chest pain, left posterior upper chest area, likely representing Coxsackie B infection ([employer]), although the patient may have a mild asthma exacerbation as well. 2. History of lupus erythematosus. 3. Supraventricular tachycardia, status post ablation. 4. History of chronic bronchial asthma. 5. Hyperlipidemia. 6. History of syncope. 7. Renal insufficiency. PLAN: Please see my orders. I will add Pulmicort and formoterol. In addition, we will bump her Mobic up to 50 mg a day. Additional recommendations and suggestions are forthcoming. I suspect that she will feel better in 24 hours or so. No additional recommendations are made at this time. MMODL / IJN: [id number] / MTDD
[2020-07-18] MEDS: methylPREDNISolone SOD SUCCI 125 MG/2 ML VIAL IV SCH (06:00)
[2020-07-18 08:08] VITALS: BP 95/60; TEMP 97.9
[2020-07-18] MEDS: DIGOXIN 125 MCG TAB PO SCH (08:56)
[2020-07-18] MEDS: FLUDROCORTISONE 0.1 MG TAB PO SCH (08:56)
[2020-07-18] MEDS: TOPIRAMATE 100 MG TAB PO SCH (08:57)
[2020-07-18] MEDS: HYDROXYCHLOROQUINE SULFATE 200 MG TAB PO SCH (08:57)
[2020-07-18] MEDS ORDERED: MELOXICAM 7.5 MG TAB PO SCH ×2 (09:00)
[2020-07-18] MEDS: IPRATROPIUM-ALBUTEROL 3 ML NEB INHALATION SCH ×2 (09:06→12:34)
[2020-07-18] MEDS: BUDESONIDE 1 MG/2 ML NEBU INHALATION SCH (09:06)
[2020-07-18] MEDS: FORMOTEROL FUMARATE 20 MCG/2 ML NEBU INHALATION SCH (09:06)
[2020-07-18 12:44] VITALS: PULSE 60
--- NOTE | 2020-07-18 13:52 | P.PN ---
Subjective Progress Note Date: 07/18/20 Principal diagnosis: Pleurisy The patient is seen today 07/18/2020 in follow-up on the regular medical floor. She is sitting up in bed. Awake and alert in no acute distress. Her left upper chest pleuritic type chest pain has nearly resolved. She was given higher doses of her Mobic which seemed to help. No worsening shortness of breath cough or congestion. No hemoptysis. No chest tightness or wheezing. She is maintaining good O2 saturations in the high 90s on room air. She's afebrile. Hemodynamically stable. She remains on bronchodilators, IV Solu-Medrol. Objective - Vital Signs Vital signs: Vital Signs Temp 97.9 F 07/18/20 08:04 Pulse 60 07/18/20 12:43 Resp 16 07/18/20 08:04 BP 95/60 07/18/20 08:04 Pulse Ox 98 07/18/20 09:06 Intake & Output 07/17/20 07/18/20 07/18/20 18:59 06:59 18:59 Intake Total 200 400 Balance 200 400 Intake: Oral 200 400 Other: Voiding Method Toilet Toilet # Voids 3 1 - Exam GENERAL EXAM: Alert, active, pleasant 55-year-old female patient, on room air, comfortable in no apparent distress. HEAD: Normocephalic. EYES: Normal reaction of pupils, equal size. NOSE: Clear with pink turbinates. THROAT: No erythema or exudates. NECK: No masses, no JVD. CHEST: No chest wall deformity. LUNGS: Equal air entry with no crackles, wheeze, rhonchi or dullness. CVS: S1 and S2 normal with no audible murmur, regular rhythm. ABDOMEN: No hepatosplenomegaly, normal bowel sounds, no guarding or rigidity. SPINE: No scoliosis or deformity SKIN: No rashes CENTRAL NERVOUS SYSTEM: No focal deficits, tone is normal in all 4 extremities. EXTREMITIES: There is no peripheral edema. No clubbing, no cyanosis. Peripheral pulses are intact. - Labs CBC & Chem 7: 07/16/20 12:31 07/16/20 12:31 Assessment and Plan Assessment: 1 chest pain, pleuritic in nature, suspect coxsackie B infection 2 Acute exacerbation of mild intermittent chronic bronchial asthma 3 History of lupus erythematous 4 History of SVT with previous ablation 5 Hyperlipidemia 6 History of syncope 7 Renal insufficiency Plan: The patient was seen and evaluated by Dr. Fontaine She is stable from the pulmonary standpoint Discharge home on prednisone taper Continue home asthma medications We'll see as needed I, the cosigning physician, performed a history & physical examination of the patient. Lungs sounds are clear. Maintaining good O2 saturations in the 90s on room air. I discussed the assessment and plan of care with my nurse practitioner, Glenys Herrera. I attest to the above note as dictated by her.
--- NOTE | 2020-07-19 04:16 | DS ---
DISCHARGE SUMMARY DATE OF SERVICE: 07/18/2020 FINAL DIAGNOSES: 1. Left upper back and chest pain, possible musculoskeletal pain, possible pleurisy. 2. Myocardial infarction ruled out. 3. History of chronic obstructive pulmonary disease. 4. Apical scarring. 5. Hyperlipidemia. 6. History of syncope. 7. History of supraventricular tachycardia and cardiac ablation. 8. History of adrenal insufficiency. 9. History of lupus. 10.History of chronic nausea. 11.History of postoperative nausea, vomiting. DISCHARGE DISPOSITION: The patient will be discharged in stable condition with guarded prognosis. HISTORY OF PRESENT ILLNESS: This 55-year-old woman with a past medical history of multiple medical problems was admitted with left upper back, chest pain and shoulder pain. The patient was monitored closely. Myocardial infarction ruled out. Cardiology saw the patient. CT scan of the chest was in normal limits. Other investigations also normal. The patient was improved with conservative line of management. Dr. Fontaine and Cardiology saw the patient during the hospitalization. On exam, vitals are stable. CARDIOVASCULAR: S1, S2 muffled. ABDOMEN: Soft. NERVOUS SYSTEM: No focal deficits. DISCHARGE ADVICE: 1. Diet is cardiac. 2. Activity limited until followup. 3. Follow up with Dr. Leeann Shah in 2-3 days. 4. Follow with Cardiology and Pulmonology as recommended. Medications are: 1. Corgard 20 mg p.o. daily. 2. Digitek 125 mcg p.o. daily. 3. Mobic daily p.r.n. 4. Omeprazole 20 mg p.o. b.i.d. 5. Plaquenil 200 mg p.o. daily. 6. Singulair 10 mg at bedtime. 7. Topamax 100 mg p.o. b.i.d. 8. Vitamin D2, 50,000 . 9. Xopenex 2 puffs q.i.d. p.r.n. 10.Cortef 10 mg p.o. daily. 11.Fludrocortisone 0.1 mg p.o. daily. 12.Medrol dose pack as directed. 13.Tylenol p.r.n. Once again, the patient will be discharged in a stable condition with a guarded prognosis. MMODL / IJN: [id number] / MTDD
[2020-07-23] MEDS ORDERED: ERGOCALCIFEROL 50,000 UNIT CAP PO SCH (09:00)
== END 2020-07-18 13:35 ==
LOC: EC 12:06 → 3NCARDOBS 13:52
PROVIDERS: ADMIT Hospitalist; ATTEND Hospitalist
DX: R07.89 Other chest pain (principal); M54.6 Pain in thoracic spine; J45.901 Unspecified asthma with (acute) exacerbation; J44.9 Chronic obstructive pulmonary disease, unspecified; R11.0 Nausea; G89.29 Other chronic pain; M54.2 Cervicalgia; I47.1 Supraventricular tachycardia; E78.5 Hyperlipidemia, unspecified; E27.40 Unspecified adrenocortical insufficiency; R11.2 Nausea with vomiting, unspecified; R55 Syncope and collapse; L93.0 Discoid lupus erythematosus; N28.9 Disorder of kidney and ureter, unspecified; Z20.828 Contact with and (suspected) exposure to other viral communicable diseases; K21.9 Gastro-esophageal reflux disease without esophagitis; J84.10 Pulmonary fibrosis, unspecified; Z79.899 Other long term (current) drug therapy; Z79.1 Long term (current) use of non-steroidal anti-inflammatories (NSAID); Z91.041 Radiographic dye allergy status; Z88.5 Allergy status to narcotic agent; Z88.0 Allergy status to penicillin; Z91.013 Allergy to seafood; Z80.9 Family history of malignant neoplasm, unspecified
CPT/HCPCS: 96376 ×3; 96374; 99285; 36415; 94640 ×6; 94760; 93005; 93306; 85379; 83880; 80053; 85652; 83605; 83735; 84484; 85025; 85610; 85730; 86140; 87635; 71046; 71250; G0378 ×3; U0003; J2930 ×3

== ENCOUNTER → 2022-02-20 | Outpatient (CLI) | payer BC ==
--- NOTE | 2022-02-27 16:42 | MM ---
Reason for Exam: Screening (asymptomatic). Last mammogram was performed 3 year(s) and 6 month(s) ago. Patient History: Menarche at age 12. First Full-Term at age 23. Postmenopausal. Hormonal Contraceptives for 10 years from age 31 until age 41. Maternal grandmother had breast cancer. Mother had breast cancer at or over age 50. Risk Values: Mame 5 year model risk: 2.5%. NCI Lifetime model risk: 14.5%. Prior Study Comparison: 04/02/2012 Bilateral Screening Mammogram, [facility]. 04/06/2012 Left Diagnostic Mammogram, [facility]. 11/04/2013 Bilateral Screening Mammogram, [facility]. Tissue Density: There are scattered fibroglandular densities. Findings: Analyzed By CAD. Focal asymmetry of the inferior left mediolateral oblique view, present previously. No suspicious groups of microcalcifications, spiculated or lobular masses, architectural distortion or other secondary signs of malignancy are mammographically apparent. Overall Assessment: Benign, BI-RAD 2 Management: Screening Mammogram of both breasts in 1 year. A negative mammogram report should not preclude additional follow up of suspicious palpable abnormalities. Patient should continue monthly self breast exam. A clinical breast exam by your physician is recommended on an annual basis and results should be correlated with mammographic findings. Electronically signed and approved by: Antony Wesley D.O. Radiologis
== END | disposition home or self-care (01) ==
LOC: RADMAMWWP 06:45
PROVIDERS: ATTEND Family Medicine
DX: Z12.31 Encounter for screening mammogram for malignant neoplasm of breast (principal); Z78.0 Asymptomatic menopausal state; Z80.3 Family history of malignant neoplasm of breast
CPT/HCPCS: 77063; 77067